=== PATIENT | female | born 1995 | race Caucasian/White ===

== ENCOUNTER 2017-08-17 21:32 | Emergency (ER) | payer OTHER, SELFPAY ==
[2017-08-17 22:18] VITALS: BP 142/89; PULSE 111; RESP 18; TEMP 36.8; O2SAT 98; BMI 45.1
[2017-08-18] MEDS: OXYCODONE/ACETAMINOPHEN 5/325 TABLET 2 TAB PO (00:10)
[2017-08-18 00:24] VITALS: BP 122/72; PULSE 96; RESP 14; O2SAT 97
--- NOTE | 2017-08-18 02:04 | ED_ITS ---
HPI - URI/Sore Throat General Chief Complaint: Upper Respiratory Symptoms Stated Complaint: SORE THROAT History of Present Illness HPI Narrative: HPI 22-year-old female presents for evaluation of 3+ days of progressively worsening sore throat, left tonsillar swelling, and discomfort. Patient was seen at urgent care approximately 2 days ago was placed on azithromycin without improvement. Denies headache, changes in vision or hearing, neck stiffness. ROS with no recent constitutional symptoms. Exam Gen: pleasant, nontoxic-appearing, resting mild discomfort. HEENT: posterior oropharynx with significant left [place] tonsillar swelling, uvular shift to the right, and mild left tonsillar hypertrophy. Neck supple full STORM him, otherwise normocephalic and atraumatic. The floor the mouth soft without elevation or swelling. Resp: Unlabored respirations with a normal work of breathing. Card: Extremities warm and well perfused. GI: Non-distended. : Deferred MSK: No visible deformities, strength and tone without visually appreciable deficit. Neuro: AO x 3, no facial asymmetry, vision and hearing WNL. Heme/Lymph: Deferred Skin: Normal color with no visible lesions (other than noted above). Psych: Mood and affect appropriate. MDM Previous chart, nursing note, and vitals reviewed. A: 22-year-old female presents for evaluation 3+ days of progressively worsening sore throat and left tonsillar swelling refractory to a Z-pack prescribed by urgent care. DDx & Evaluation: examination consistent with a left peritonsillar abscess. This was drained as documented below. Following drainage discussion was had with the patient regarding imaging to evaluate for the possibility of incomplete drainage versus treatment and return to care if patient is reaccumulation or other worsening and clinical trajectory. Patient decided to defer imaging pending a trial of antibiotics and steroids. Return to care precautions provided. Augmentin and dexamethasone given in the ED. Discharge RX for Augmentin and a repeat dose of Decadron given. Impression: left [employer] (please reference below for remainder of encounter information) Peritonsillar Abscess Drainage Verbal consent obtained. The risks and benefits including pain, bleeding, infection, and carotid artery injury were discussed with the patient and the patient understood these risks and agreed to the procedure. Patient premedicated with oxycodone. The patient's posterior oropharynx was topically anesthetized with several short sprays of benzocaine spray. 4 mL lidocaine with 1% epinephrine were injected into the mucosa overlying the area of maximal fluctuance. An 18-gauge needle with its sheath trimmed 1.5 cm short of the tip was inserted into the area of maximum fluctuance and 6 mL of purulent material was aspirated. Scant bleeding was appreciated which resolved shortly. The patient tolerated the procedure well without any apparent complications. Related Data Previous Rx's Medication Instructions Recorded azithromycin 250 mg tablet See Label Instructions PO .COMPLEX 08/15/17 #6 tab amoxicillin-pot clavulanate 1 tab PO BID #20 tab 08/18/17 [Augmentin] dexamethasone See Label Instructions .ROUTE 08/18/17 .COMPLEX #3 tab hydrocodone-acetaminophen [[place]] See Label Instructions .ROUTE 08/18/17 .COMPLEX PRN #8 tab Allergies Allergy/AdvReac Type Severity Reaction Status Date / Time No Known Drug Allergies Allergy Verified 08/17/17 22:18 [facility] Social History Smoking Status: Former smoker Exam Initial Vital Signs Initial Vital Signs: Vital Signs Temperature 98.2 F 08/17/17 22:18 Pulse Rate 111 H 08/17/17 22:18 Respiratory Rate 18 08/17/17 22:18 Blood Pressure 142/89 H 08/17/17 22:18 Pulse Oximetry 98 08/17/17 22:18 Course Orders Ordered: Discontinued Medications Amoxicillin/Clavulanate Potassium (Augmentin 875-125 Mg) 1 tab PO NOW ONE Stop: 08/18/17 01:54 Dexamethasone (Decadron) 12 mg PO NOW ONE Stop: 08/18/17 01:54 Oxycodone/Acetaminophen (Percocet 5/325) 2 tab PO NOW ONE Stop: 08/18/17 00:10 Last Admin: 08/18/17 00:10 Dose: 2 tab Vital Signs - 8 hr 08/17/17 22:18 08/18/17 00:24 Temperature 98.2 F Pulse Rate 111 H 96 H Respiratory Rate 18 14 Blood Pressure 142/89 H Blood Pressure [Right Arm] 122/72 H Pulse Oximetry 98 97 Discharge Plan Departure Patient Disposition: Home, Self-Care Clinical Impression: Abscess, peritonsillar Activity Restrictions/Additional Instructions: You were in seen in the [facility] Emergency Department for evaluation of a painful swallowing left tonsil. Your found have abscess. This was drained. If you develop worsening swelling, fevers, neck stiffness, headache, changes in vision or hearing please return immediately to the emergency department. This infection will most likely resolve your next 2 to 3 days with treatment with antibiotics and steroids. Please take the prescribed Augmentin twice daily for the next 10 days. Please take one further dose of dexamethasone approximately 24 to 30 hours after the dose your given in the emergency department. If your symptoms fail to resolve the next 2 to 3 days please return to the emergency department or see your primary care physician. Please read and follow all of the instructions below. Please follow up with your primary care physician as needed. If you have any new symptoms or if you are at all concerned about your health please return immediately to the emergency department. If you do not have a primary care physician, please contact [facility], [facility] at [phone], [facility] at [phone], or [facility] at [phone] to arrange follow up care. If you have health insurance, please also contact your insurer for a list of accepting providers under your policy, you may contact these providers for further health care. Your care today was limited to identifying and treating emergent medical problems only. Many people have subtle differences in their test results that require follow up with their outpatient physician(s) to correctly determine if this represents a normal variation or concerning abnormality with respect to your specific health. The care given to you today was limited to identifying and treating emergent medical problems - you need to request a copy of all of your medical records from today's visit and follow up with your outpatient physician(s) to review both today's visit and your overall health. Dexamethasone (Brand Names: Dexamethasone Intensol) Dexamethasone is a steroid with anti-inflammatory properties used to treat conditions such as asthma, COPD, allergic reactions, and arthritis. This medication is a corticosteroid hormone (glucocorticoid). It decreases your body' s natural defensive response and reduces symptoms such as swelling and allergic- type reactions. Dexamethasone ? How to Use: * Take this medication by mouth as directed. Take with food or milk to prevent stomach upset. * Before using this medication, check the liquid for particles. Do not use this medication if it contains any particles. * If prescribed a liquid form, use only the dropper provided with the product. Draw the prescribed amount of the medication into the dropper, and then squeeze into liquid (e.g., water, juice, soda) or semi-solid food (e.g., applesauce, pudding). Stir the liquid or food gently for a few seconds. Take the entire amount of the drug and liquid/food mixture by mouth right away. Do not save for later. * The dosage and length of treatment are based on your medical condition and response to therapy. Your doctor may attempt to reduce your dose slowly from time to time to minimize side effects. Dexamethasone ? Side Effects: * Stomach upset, headache, dizziness, menstrual changes, trouble sleeping, increased appetite, or weight gain may occur. If any of these effects persist or worsen, notify your doctor or pharmacist promptly. * Remember that your doctor has prescribed this medication because he or she has judged that the benefit to you is greater than the risk of side effects. Many people using this medication do not have serious side effects. * Tell your doctor right away if any of these unlikely but serious side effects occur: signs of infection (e.g., fever, persistent sore throat), bone/joint pain , increased thirst/urination, fast/slow/irregular heartbeat, eye pain/pressure, vision problems, heartburn, black stools, vomit that looks like coffee grounds, puffy face, swelling of the ankles/feet, stomach/abdominal pain, pain/redness/ swelling of arms/legs, tiredness, mental/mood changes (e.g., depression, mood swings, agitation), unusual hair/skin growth, muscle pain/cramps, weakness, easy bruising/bleeding, slow wound healing, thinning skin, seizures. * A very serious allergic reaction to this drug is rare. However, seek immediate medical attention if you notice any symptoms of a serious allergic reaction, including: rash, itching/swelling (especially of the face/tongue/ throat), severe dizziness, trouble breathing. This is not a complete list of possible side effects. If you notice other effects not listed above, contact your doctor or pharmacist. Dexamethasone ? Precautions: * Before taking dexamethasone, tell your doctor or pharmacist if you are allergic to it; or to other corticosteroids (e.g., prednisone); or if you have any other allergies. This product may contain inactive ingredients, which can cause allergic reactions or other problems. Talk to your pharmacist for more details. * This medication should not be used if you have certain medical conditions. Before using this medicine, consult your doctor or pharmacist if you have: active fungal infections. * Before using this medication, tell your doctor or pharmacist your medical history, especially of: other infections (e.g., tuberculosis, herpes), kidney disease, liver disease, mental/mood conditions (e.g., psychosis, anxiety, depression), low blood minerals (e.g., low potassium/calcium), thyroid disease, stomach/intestinal problems (e.g., ulcer, ulcerative colitis, diverticulitis, unexplained diarrhea), high blood pressure, heart problems (e.g., congestive heart failure, recent heart attack), diabetes, eye diseases (e.g., cataracts, glaucoma, herpes infection of the eye), brittle bones (osteoporosis), history of blood clots. * This medication may mask signs of infection or put you at greater risk of developing very serious infections. Report any injuries or signs of infection ( e.g., persistent sore throat/fever/cough, pain during urination, muscle aches) that occur during treatment. * Tell your doctor right away if you develop unusual/extreme tiredness or weight loss. If you will be using this medication for a long time, carry a warning card or medical ID bracelet that identifies your use of this medication. * Do not have immunizations, vaccinations, or skin tests unless specifically directed by your doctor. Live vaccines may cause serious complications (e.g., infection) if given while you are taking this medication. Avoid contact with people who have recently received oral polio vaccine or flu vaccine inhaled through the nose. * Avoid contact with people who have chickenpox or measles unless you have previously had these diseases (e.g., in childhood). If you are exposed to one of these infections and you have not previously had it, seek immediate medical attention. This product contains alcohol. Caution is advised if you have alcohol dependence or liver disease. Ask your doctor or pharmacist about using this product safely. If you have a history of ulcers or take large doses of aspirin or other arthritis medication, limit alcoholic beverages while taking this medication to decrease the risk of stomach/intestinal bleeding. Consult your doctor or pharmacist for more details. * If you have diabetes, this drug may make it harder to control your blood sugar levels. Monitor your blood sugar levels regularly and inform your doctor of the results. Your medicine, exercise plan, or diet may need to be adjusted. * This drug may make you dizzy. Do not drive, use machinery, or do any activity that requires alertness until you are sure you can perform such activities safely. Limit alcoholic beverages. This medication may slow down a child's growth if used for a long time. Consult the doctor or pharmacist for more details. See the doctor regularly so your child's height and growth can be checked. * During , this medication should be used only when clearly needed. Discuss the risks and benefits with your doctor. Infants born to mothers who have been using this medication for an extended time and/or at high doses may have low levels of corticosteroid hormone. Tell your doctor right away if you notice symptoms such as persistent nausea/vomiting, severe diarrhea, or weakness in your . * This drug may pass into breast milk and could have undesirable effects on a nursing infant. Consult your doctor before breast- feeding. Dexamethasone ? Drug Interactions: * Drug interactions may change how your medications work or increase your risk for serious side effects. This document does not contain all possible drug interactions. Keep a list of all the products you use (including prescription/ nonprescription drugs and herbal products) and share it with your doctor and pharmacist. Do not start, stop, or change the dosage of any medicines without your doctor's approval. * Some products that may interact with this drug include: aminoglutethimide, control pills, caspofungin, certain cancer drugs (dasatinib, lapatinib, sunitinib, aldesleukin), cholestyramine, cobicistat, digoxin, elvitegravir, drugs that can cause bleeding/bruising (including antiplatelet drugs such as clopidogrel, blood thinners such as dabigatran/warfarin, NSAIDs such as aspirin/celecoxib/ibuprofen), ephedrine, estrogen hormone replacement, HIV protease inhibitors (such as indinavir), isoniazid, mifepristone, rilpivirine, thalidomide. * Other medications can affect the removal of dexamethasone from your body, which may affect how dexamethasone works. Examples include azole antifungals ( such as ketoconazole), barbiturates (such as phenobarbital), rifamycins (such as rifampin), certain medications used to treat seizures (such as phenytoin, carbamazepine), among others. * If your doctor has directed you to take low-dose aspirin for heart attack or stroke prevention (usually at dosages of 81-325 milligrams a day), you should continue taking it unless your doctor instructs you otherwise. Ask your doctor or pharmacist for more details. * This medication may interfere with certain laboratory tests (including skin tests), possibly causing false test results. Make sure laboratory personnel and all your doctors know you use this drug. Amoxicillin/Clavulanic Acid (Brand Name: Augmentin) * Please take this medication as prescribed. * Please take the medication for the full duration of the precription. * If you feel you are experiencing a side effect, please call your physician or the emergency department. * This is a penicillin type medicine used to treat a wide variety of bacterial infections. Amoxicillin/Clavulanic Acid Side Effects: * Diarrhea, nausea, or vomiting may occur. If any of these effects persist or worsen, tell the doctor or pharmacist promptly. Taking this medication with food will help to reduce stomach upset. * Tell the doctor right away if any of these rare but serious side effects occur : dark urine, persistent nausea/vomiting, severe stomach/abdominal pain, yellowing eyes/skin, easy bruising/bleeding, new signs of infection (such as fever, persistent sore throat), unusual tiredness. * This medication may rarely cause a severe intestinal condition (Clostridium difficile-associated diarrhea) due to a type of resistant bacteria. This condition may occur during treatment or weeks to months after treatment has stopped. Do not use anti-diarrhea products or narcotic pain medications if you have any of the following symptoms because these products may make them worse. Tell the doctor right away if you develop: persistent diarrhea, abdominal or stomach pain/cramping, blood/mucus in your stool. * Use of this medication for prolonged or repeated periods may result in oral thrush or a new yeast infection. Contact the doctor if you notice white patches in your mouth, a change in vaginal discharge or other new symptoms. * A very serious allergic reaction to this drug is rare. However, get medical help right away if you notice any symptoms of a serious allergic reaction, including: rash, itching/swelling (especially of the face/tongue/throat), severe dizziness, trouble breathing. * Amoxicillin can commonly cause a mild rash that is usually not serious. However, you may not be able to tell it apart from a rare rash that could be a sign of a severe allergic reaction. Therefore, get medical help right away if you develop any rash. Amoxicillin/Clavulanic Acid Precautions: * Before taking this product, tell your doctor or pharmacist if you are allergic to amoxicillin or clavulanic acid; or to penicillin or cephalosporin antibiotics; or if you have any other allergies. This product may contain inactive ingredients, which can cause allergic reactions or other problems. Talk to your pharmacist for more details. * Before using this medication, tell the doctor or pharmacist your medical history, especially of: liver disease (including liver problems caused by previous use of amoxicillin/clavulanic acid), kidney disease, a certain type of viral infection (infectious mononucleosis). * This medication may contain aspartame. If you have phenylketonuria (PKU) or any other condition that requires you to limit/avoid aspartame (or phenylalanine ) in your diet, ask your doctor or pharmacist about using this medication safely. * Before having surgery, tell your doctor or dentist about all the products you use (including prescription drugs, nonprescription drugs, and herbal products). * This product may cause live bacterial vaccines (such as typhoid vaccine) not to work as well. Therefore, do not have any immunizations/vaccinations while using this medication without the consent of your doctor. * During , this medication should be used only when clearly needed. Discuss the risks and benefits with your doctor. * This medication passes into breast milk. Consult your doctor before breast- feeding. Amoxicillin/Clavulanic Acid Drug Interactions: * Drug interactions may change how your medications work or increase your risk for serious side effects. This document does not contain all possible drug interactions. Keep a list of all the products you use (including prescription/ nonprescription drugs and herbal products) and share it with your doctor and pharmacist. Do not start, stop, or change the dosage of any medicines without your doctor's approval. * Products that may interact with this drug include: methotrexate. * Although most antibiotics are unlikely to affect hormonal control such as pills, patch, or ring, a few antibiotics (such as rifampin, rifabutin) can decrease their effectiveness. This could result in . If you use hormonal control, ask your doctor or pharmacist for more details. * This medication may interfere with certain laboratory tests (including certain urine glucose tests), possibly causing false test results. Make sure laboratory personnel and all your doctors know you use this drug. Hydrocodone/Acetaminophen (Brand Names: [place], Vicodin) * Take as directed on the prescription for relief of pain. * This product contains acetaminophen (Tylenol) do not use it with other Acetaminophen containing medications. * This drug may cause mild nausea, if so you may take it with a small snack. * This drug will cause constipation, if you experience a decrease in bowel movements purchase Senna-S (sennasides and docusate) which is available over the counter at pharmacies and take as directed on the bottle. Call your physician if you have not had bowel movemen in two days. * This drug may cause fatigue - do not drive or engage in other hazardous activities when using this medication. * Do no drink alcohol when using this medication. * Store this drug safely, it is a high risk medication if misused. SIDE EFFECTS: Tell your doctor immediately if any of these unlikely but serious side effects occur: mental/mood changes, severe stomach/abdominal pain, difficulty urinating. Seek immediate medical attention if any of these rare but serious side effects occur: fainting, seizure, slow/shallow breathing, unusual drowsiness/difficulty waking up. Taking more than the recommended dose of acetaminophen may cause serious (possibly fatal) liver disease. Seek immediate medical attention if you have any symptoms of liver damage, including: dark urine, persistent nausea/vomiting, stomach/abdominal pain, yellowing eyes/skin. A very serious allergic reaction to this drug is rare. However, seek immediate medical attention if you notice any symptoms of a serious allergic reaction, including: rash, itching/swelling (especially of the face/tongue/throat), severe dizziness, trouble breathing. This is not a complete list of possible side effects. PRECAUTIONS: Before taking this medication, tell your doctor or pharmacist if you are allergic to it; or to other narcotics (such as morphine, codeine); or if you have any other allergies. This product may contain inactive ingredients, which can cause allergic reactions or other problems. Talk to your pharmacist for more details. Before using this medication, tell your doctor or pharmacist your medical history, especially of: brain disorders (such as head injury, tumor , seizures), breathing problems (such as asthma, sleep apnea, chronic obstructive pulmonary disease-COPD), kidney disease, liver disease, mental/mood disorders (such as confusion, depression), personal or family history of regular use/abuse of drugs/alcohol, stomach/intestinal problems (such as blockage, constipation, diarrhea due to infection, paralytic ileus), difficulty urinating (such as due to enlarged prostate). This drug may make you dizzy or drowsy. Avoid alcoholic beverages. Acetaminophen may cause liver damage. Daily use of alcohol, especially when combined with acetaminophen, may increase your risk for liver damage. Caution is advised if you have diabetes, alcohol dependence, liver disease, phenylketonuria (PKU), or any other condition that requires you to limit/avoid these substances in your diet. Ask your doctor or pharmacist about using this product safely. Older adults may be more sensitive to the effects of this drug, especially dizziness, drowsiness, urinary problems. During , this medication should be used only when clearly needed. Using it for long periods or in high doses near the expected delivery date is not recommended because of the potential for harm to the unborn baby. Discuss the risks and benefits with your doctor. Babies born to mothers who have used this medication for an extended time may have withdrawal symptoms such as irritability, abnormal/persistent crying, vomiting, or diarrhea. If you notice any of these symptoms in your , tell the doctor promptly. This medication passes into breast milk and may rarely have undesirable effects on a nursing infant. Tell the doctor immediately if your baby develops unusual sleepiness, difficulty feeding, or trouble breathing. Consult your doctor before breast-feeding. Prescriptions: New hydrocodone-acetaminophen [[place]] 5-325 mg tablet See Label Instructions .ROUTE .COMPLEX PRN (Reason: pain) Qty: 8 RF: 0 dexamethasone 4 mg tablet See Label Instructions .ROUTE .COMPLEX Qty: 3 RF: 0 amoxicillin-pot clavulanate [Augmentin] 875-125 mg tablet 1 tab PO BID Qty: 20 RF: 0 No Action azithromycin 250 mg tablet See Label Instructions PO .COMPLEX Qty: 6 RF: 0
[2017-08-18] MEDS: DEXAMETHASONE 4 MG TABLET 12 MG PO (02:33)
[2017-08-18] MEDS: AMOXICILLIN/CLAV 875/125 MG 1 TAB PO (02:34)
[2017-08-18 02:36] VITALS: BP 138/96; PULSE 101; TEMP 37.2; O2SAT 96
== END 2017-08-18 02:37 | disposition home or self-care (01) ==
PROVIDERS: Emergency Provider Emergency Medicine
DX: J36 Peritonsillar abscess (principal)
CPT/HCPCS: 10060; 87880; 99282; 99283

== ENCOUNTER → 2017-09-02 09:38 | Outpatient (CLI) | payer OTHER, SELFPAY ==
[2017-09-02 10:32] LABS: Add Manual Diff / Slide Review NO; Basophils Percent Auto 0.7 % (0-2); Eosinophils Percent Auto 2.2 % (2-4); Hematocrit 39.6 % (36-46); Lymphocytes Percent Auto 24.8 % (25-40); Mean Corpuscular HGB Conc 32.9 % (30-36); Mean Corpuscular Hemoglobin 25.1 PG (26-34); Mean Corpuscular Volume 76.2 fL (80-100); Neutrophils Absolute Auto 8600 /uL (3000-5900); Neutrophils Percent Auto 66.3 % (50-75); Platelet Count 292 X10^3/uL (150-400); Red Cell Distribution Width 15.1 % (11.6-14.8); White Blood Cell Count 12.9 X10^3/uL (4.5-11.0)
[2017-09-02 10:53] LABS: Hemoglobin A1C% w Est Avg Glu 7.8 % (4.0-6.0)
[2017-09-02 11:03] LABS: Alanine Aminotransferase 74 IU/L (9-52); Albumin 4.3 g/dL (3.5-5.0); Albumin Globulin Ratio 1.4 (1.0-2.8); Alkaline Phosphatase 69 U/L (38-126); Aspartate Aminotransferase 41 IU/L (14-36); Bilirubin Total 0.4 mg/dL (0.2-1.3); Blood Urea Nitrogen 10 mg/dL (7-17); Calcium 10.1 mg/dL (8.4-10.2); Carbon Dioxide 28 mmol/L (22-32); Chloride 100 mmol/L (98-107); Estimated Glomerular Filt Rate > 60.0 mL/min (>60); Glucose 223 mg/dL (70-100); HEMOLYSIS < 15 (0-50); Potassium 4.5 mmol/L (3.4-5.1); Sodium 139 mmol/L (137-145); Total Protein 7.3 g/dL (6.3-8.2)
== END ==
PROVIDERS: PCP Specialist; Visit Provider Specialist
DX: J36 Peritonsillar abscess (principal); L83 Acanthosis nigricans; E66.9 Obesity, unspecified
CPT/HCPCS: 36415; 80053; 83036; 85025

== ENCOUNTER → 2017-12-19 11:12 | Outpatient (CLI) | payer OTHER, SELFPAY | PROVIDERS: PCP Specialist | DX: Z23 Encounter for immunization (principal) | CPT/HCPCS: 90471; 90686 ==

== ENCOUNTER → 2018-11-30 15:26 | Outpatient (CLI) | payer OTHER, SELFPAY | PROVIDERS: PCP Specialist | DX: Z23 Encounter for immunization (principal) | CPT/HCPCS: 90471; 90686 ==

== ENCOUNTER → 2019-06-28 07:44 | Outpatient (CLI) | payer OTHER, SELFPAY ==
[2019-06-28 09:18] LABS: Add Manual Diff / Slide Review NO; Basophils Absolute Auto 100 /uL (0-100); Basophils Percent Auto 0.7 % (0-2); Eosinophils Absolute Auto 300 /uL (0-450); Eosinophils Percent Auto 2.4 % (2-4); Hematocrit 42.6 % (36-46); Hemoglobin 13.9 g/dL (12.0-16.0); Lymphocytes Absolute Auto 3600 /uL (1100-4500); Lymphocytes Percent Auto 30.6 % (25-40); Mean Corpuscular HGB Conc 32.7 % (30-36); Mean Corpuscular Hemoglobin 25.2 PG (26-34); Mean Corpuscular Volume 77.3 fL (80-100); Monocytes Absolute Auto 700 /uL (0-900); Monocytes Percent Auto 5.8 % (3-14); Neutrophils Absolute Auto 7200 /uL (1500-7000); Neutrophils Percent Auto 60.5 % (50-75); Platelet Count 320 X10^3/uL (150-400); Red Blood Cell Count 5.52 X10^6/uL (4.0-5.2); Red Cell Distribution Width 14.5 % (11.6-14.8); White Blood Cell Count 11.9 X10^3/uL (4.5-11.0)
[2019-06-28 09:44] LABS: Alanine Aminotransferase 96 IU/L (<35); Albumin 4.6 g/dL (3.5-5.0); Albumin Globulin Ratio 1.2 (1.0-2.8); Alkaline Phosphatase 90 U/L (38-126); Aspartate Aminotransferase 53 IU/L (14-36); BUN Creatinine Ratio 23.4 (6-22); Bilirubin Total 0.4 mg/dL (0.2-1.3); Blood Urea Nitrogen 11 mg/dL (7-17); Calcium 9.4 mg/dL (8.4-10.2); Carbon Dioxide 25 mmol/L (22-32); Chloride 100 mmol/L (98-107); Cholesterol 219 mg/dL (140-199); Estimated Glomerular Filt Rate > 60.0 mL/min (>60); Globulin 3.8 g/dL (1.7-4.1); Glucose 291 mg/dL (70-100); HDL Cholesterol 45 mg/dL (40-60); HEMOLYSIS < 15 (0-50); LDL Cholesterol Calculated 144 mg/dL (<100); Potassium 4.2 mmol/L (3.4-5.1); Sodium 137 mmol/L (137-145); Total Protein 8.4 g/dL (6.3-8.2); Triglycerides 152 mg/dL (35-150)
[2019-06-28 09:53] LABS: Free T3, Triiodothyronine Free 4.32 pg/mL (2.77-5.27); Free T4, Direct Thyroxine 1.16 ng/dL (0.78-2.19)
[2019-06-28 10:07] LABS: Thyroid Stimulating Hormone 2.49 uIU/mL (0.47-4.68)
[2019-06-28 12:12] LABS: Creatinine Urine Random 167.6 mg/dL
[2019-06-28 12:16] LABS: Microalbumi Creatinin Ratio Ur 16.7 ug/mg CR (<30); Microalbumin Urine Random 2.8 mg/dL (0-1.6)
== END ==
PROVIDERS: PCP Specialist; Referring Provider Nurse Practitioner; Visit Provider Nurse Practitioner
DX: Z00.00 Encounter for general adult medical examination without abnormal findings (principal); I10 Essential (primary) hypertension; R73.09 Other abnormal glucose; R73.9 Hyperglycemia, unspecified
CPT/HCPCS: 36415; 80053; 80061; 82043; 82570; 84439; 84443; 84481; 85025

== ENCOUNTER → 2019-07-02 08:42 | Outpatient (CLI) | payer OTHER, SELFPAY ==
--- NOTE | 2019-07-02 08:44 | DI.US.S_ITS ---
ULTRASOUND OF LEFT BREAST: 07/02/2019 CLINICAL: Left breast pain. No prior exams were available for comparison. Ultrasound of the left breast was performed on the area of interest. Douglas scale images of the real-time examination were reviewed. IMPRESSION: NEGATIVE There is no sonographic evidence of malignancy. There is no sonographic abnormality seen in the left breast to correspond with the pain, however, clinical followup is recommended. This exam was interpreted at Station ID: [id number]. Electronically Signed By: Darcy Dunn M.D. lk/:07/02/2019 10:36:45 letter sent: Clinical Evaluation Ultrasound BI-RADS: 1 Negative
== END ==
PROVIDERS: PCP Nurse Practitioner; Referring Provider Nurse Practitioner; Visit Provider Nurse Practitioner
DX: N64.4 Mastodynia (principal)
CPT/HCPCS: 76642

== ENCOUNTER → 2019-07-11 11:05 | Outpatient (CLI) | payer OTHER, SELFPAY ==
[2019-07-11 13:28] LABS: Glucose 232 mg/dL (70-100)
[2019-07-11 13:35] LABS: Hemoglobin A1C% w Est Avg Glu 11.6 % (4.0-6.0)
== END ==
PROVIDERS: PCP Nurse Practitioner; Referring Provider Nurse Practitioner; Visit Provider Nurse Practitioner
DX: R73.01 Impaired fasting glucose (principal)
CPT/HCPCS: 36415; 82947; 83036

== ENCOUNTER 2019-08-27 16:00 | Outpatient (RCR) | payer OTHER, SELFPAY ==
--- NOTE | 2019-07-04 12:46 | PT.OIE ---
Current Diagnoses Pain in left ankle and joints of left foot (07/04/19) Pain in left foot (07/04/19) Difficulty in walking, not elsewhere classified (07/04/19) Weakness (07/04/19) Past Medical History (Last Updated 07/02/19 @ 10:00 by ANDREEA Childers) Morbid obesity with body mass index of 45.0-49.9 in adult (Acute) Visit Care Team Role Provider Type ANDREEA Childers Attending Provider Advanced Work And Family Life Consultant Primary Care Provider Referring Provider Specialty: [facility] Address: [address] [place] [address] Email: [email or web address] Physical Therapy Initial Evaluation PT-OP-A Visit Information Start: 07/04/19 10:26 Freq: Status: Active Protocol: Document 07/04/19 10:26 [facility] (Rec: 07/04/19 12:26 [facility] [id number]) Out-Patient Physical Therapy Visit Information Visit Information Visit Type Initial Evaluation Visit Start Time 10:30 Visit Stop Time 11:15 Total Visit Minutes 45 Visit Number 1 Number of SAP BW ARCHITECT Visits 0 PT-OP-B Current Condition Start: 07/04/19 10:26 Freq: Status: Active Protocol: Document 07/04/19 10:26 [facility] (Rec: 07/04/19 12:26 [facility] [id number]) Current Condition History of Current Condition Onset Date February Current Complaints L lat ankle, heels lower leg and knee History of Current Condition Pt had insidious onset of L ankle pain laterally that has spread to L heel and lat lower leg up to knee and Pt has noticed L knee has been painful. Pt had swelling when it strated hurting and started wearing a compression brace. Pt reports it takes a couple hours of standing/walking/ being on her feet before she starts to notice. Knee starts to also hurt with extended walking on anterior and lat aspect. Pt typically goes for a walk daily about 30 min to 1 hour with occasional hiking. Notes ankle sometimes feels unstable with hiking. Prior Treatments and Tests none Treatment Goals Patient/Caregiver Goals Want to learn how to alleviate the pain, figure out whats wrong Personal Factors Other Personal Factors That May Effect L knee sx with occasional pain Therapy/Recovery , pt reports constant underylying LBP that gets worse with walking, L hip pain occasionally with walking PT-OP-C Subjective Start: 07/04/19 10:26 Freq: Status: Active Protocol: Document 07/04/19 10:26 [facility] (Rec: 07/04/19 12:26 [facility] [id number]) Patient Questionnaires Foot & Ankle Ability Measure- ADL and Sports FAAM-ADL Score 71 FAAM-ADL Impairment 1 to 19% Impaired (Score 67-83 ) FAAM-Sport Score 23 FAAM-Sport Impairment 20 to 39% Impaired (Score 19- 24) Lower Extremity Functional Scale LEFS Score 66 LEFS Impairment 1 to 19% Impaired (Score 63-79 ) OP-PT Pain Assessment Location L ankle Pain Location Details Lat ankle, lower leg, heel Intensity 5 Scale Used Numeric (1 - 10) Description Aching,Sharp,With Movement Description- Other sharp when first step Frequency Daily Pain Duration a few hours Pain Aggravating Factors Standing,Walking Other Pain Aggravating Factors when first get up Pain Alleviating Factors Elevation PT-OP-D Balance Start: 07/04/19 10:26 Freq: Status: Active Protocol: Document 07/04/19 10:26 [facility] (Rec: 07/04/19 12:26 [facility] [id number]) Balance Tests Single Limb Standing Single Limb- Right >30 sec, 15 sec EC Single Limb- Left >30 sec EO, 14 sec EC Tandem Tandem Standing >30 sec B PT-OP-F Manual Assessment Start: 07/04/19 10:26 Freq: Status: Active Protocol: Document 07/04/19 10:26 [facility] (Rec: 07/04/19 12:26 [facility] [id number]) Manual Assessments Soft Tissue Assessment Soft Tissue Mobility Assessment tightness in L calf, peronials , pain along ATFL, PTFL Joint Mobility Assessment Joint Mobility Assessment patellar mobility WNL; L femur and tibia IR, R femur IR, tibia ER; pt has significant compenstated supinated foot postition PT-OP-G Mobility & Gait Start: 07/04/19 10:26 Freq: Status: Active Protocol: Document 07/04/19 10:26 [facility] (Rec: 07/04/19 12:46 [facility] [id number]) OP Gait Assessment Comments Gait Comments Pt amb with ER of L pelvis with push off. Dec push off L> R PT-OP-J Posture/Palpation/Skin Start: 07/04/19 10:26 Freq: Status: Active Protocol: Document 07/04/19 10:26 [facility] (Rec: 07/04/19 12:26 [facility] [id number]) Posture Evaluation [facility] Postural Classification System Lumbar Protective Mechanism Left AP 1 Lumbar Protective Mechanism Right AP 2 Lumbar Protective Mechanism Left PA 3 Lumbar Protective Mechanism Right PA 3 PT-OP-K Range of Motion Start: 07/04/19 10:26 Freq: Status: Active Protocol: Document 07/04/19 10:26 [facility] (Rec: 07/04/19 12:26 [facility] [id number]) Ankle and Foot Goniometric Range of Motion Ankle and Foot Right Active Dorsiflexion with Knee Flexed 12 Dorsiflexion with Knee Extended 0 Plantarflexion 55 Inversion 46 Eversion 17 Left Active Dorsiflexion with Knee Flexed 10 Dorsiflexion with Knee Extended 0 Plantarflexion 50 Inversion 41 Eversion 18 Ankle and Foot ROM Limitations Comments pain with inversion PT-OP-L Special Tests Start: 07/04/19 10:26 Freq: Status: Active Protocol: Document 07/04/19 10:26 [facility] (Rec: 07/04/19 12:26 [facility] [id number]) Special Tests Foot/Ankle Special Tests Talor Tilt Test Results neg Anterior Draw Test Results neg PT-OP-M Strength Start: 07/04/19 10:26 Freq: Status: Active Protocol: Document 07/04/19 10:26 [facility] (Rec: 07/04/19 12:26 [facility] [id number]) Hip Strength Hip Manual Muscle Testing Right Flexion (L2) 4+ Good+ Extension (S1) 4 Good Abduction 4 Good External Rotation 4- Good- Internal Rotation 4- Good- Left Flexion (L2) 4 Good Extension (S1) 3+ Fair+ Abduction 4- Good- External Rotation 3+ Fair+ Internal Rotation 3+ Fair+ Knee Strength Knee Manual Muscle Testing Right Flexion (S2) 5 Normal Extension (L3) 5 Normal Left Flexion (S2) 4 Good Extension (L3) 4 Good Comments pain with flex Ankle/Foot Strength Ankle and Foot Manual Muscle Testing Right Dorsiflexion (L4) 5 Normal Inversion 4+ Good+ Eversion (S1) 5 Normal Left Dorsiflexion (L4) 4 Good Plantarflexion (S1) 4+ Good+ Inversion 4 Good Eversion (S1) 4 Good PT-OP-Q Treatments Start: 07/04/19 10:26 Freq: Status: Active Protocol: Document 07/04/19 10: [facility] (Rec: 07/04/19 12:26 [facility] [id number]) Therapeutic Exercises Sitting Exercises 4 way ankle Sitting Exercise Name DF, PF, Inversion, eversion Side left Equipment Used L2 Reps/Minutes 15 Standing Exercises stretch Standing Exercise Name gastroc stretch Side bilateral Reps/Minutes 30 sec PT-OP-T Assessment and Plan Start: 07/04/19 10:26 Freq: Status: Active Protocol: Document 07/04/19 10: [facility] (Rec: 07/04/19 12:26 [facility] [id number]) Physical Therapy Assessment Rehab Potential Rehabilitation Potential Good Evaluation Complexity Number of Personal Factors/Comorbidities 1-2 Number of Body Systems Impaired 4 or More Clinical Presentation at Evaluation Stable Impairments Impairments Activity Tolerance,Balance, Functional Activities, Functional Mobility,Gait,Pain, ROM Goals flexibility Senior Living Goal (LTG) Pt will have full ROM B without inc pain to allow for improved gait mechanics and stability on uneven surfaces. LTG Duration 09/03/19 strenth Short Term Goal (STG) Pt will be indep with HEP STG Duration 08/04/19 Timber Bucker Goal (LTG) Pt will have 5/5 BLE strength and 4/5 LPM to show improved stability and dec pain with upright activities. LTG Duration 09/03/19 walking Short Term Goal (STG) Pt will be able to hike without ankle feeling unstable STG Duration 08/04/19 Timber Bucker Goal (LTG) Pt will be able to amb with good mechanics without pain with extended walking. LTG Duration 09/03/19 Assessment Summary Assessment Pt presents with insidious onset of L ankle pain about 5 months ago that his lingered and not improved. She reprorts lat heel, lat ankle, and lat lower leg pain with occasioanl progression of pain into L lat and ant knee in the past month. She is limited with the amount of time she spends standing and walking d/t pain and after a few hours has pain that can last a few hours even if she offloads her ankle . She has inc overall IR of femur & tibia on L and increased pronation during gait and in standing, dec core responses when pressure put in from AP into LLE, weakness of LLE, impaired gait mechanics and dec overall balance on LLE. Pt had inc pertubations on LLE>RLE in SLS & tandem stance. She would benefit from skilled PT to work on improving all these impairments in order to improve her ability to stand and ambulate without inc pain. Physical Therapy Plan Next Visit Focus/Plan Next Note Type Treatment Note Next Visit Plan review HEP as needed, balance board, STM to calf & peroneal & teach self mobs, mobs to rearfoot & tib/fib
--- NOTE | 2019-07-04 12:46 | PT.OPPOC ---
Physical, Occupational & Speech Therapy At [facility] Current Diagnoses Pain in left ankle and joints of left foot (07/04/19) Pain in left foot (07/04/19) Difficulty in walking, not elsewhere classified (07/04/19) Weakness (07/04/19) Visit Care Team Role Provider Type ANDREEA Childers Attending Provider Advanced Police Patrol Officer Primary Care Provider Referring Provider Specialty: Family Practice Address: [address] [place] [address], [facility] Email: [email or web address] Plan Of Care PT-OP-T Assessment and Plan Start: 07/04/19 10:26 Freq: Status: Active Protocol: Document 07/04/19 10:26 [facility] (Rec: 07/04/19 12:26 [facility] [id number]) Physical Therapy Assessment Rehab Potential Rehabilitation Potential Good Evaluation Complexity Number of Personal Factors/Comorbidities 1-2 Number of Body Systems Impaired 4 or More Clinical Presentation at Evaluation Stable Impairments Impairments Activity Tolerance,Balance, Functional Activities, Functional Mobility,Gait,Pain, ROM Goals flexibility Stock Puller Goal (LTG) Pt will have full ROM B without inc pain to allow for improved gait mechanics and stability on uneven surfaces. LTG Duration 09/03/19 strenth Short Term Goal (STG) Pt will be indep with HEP STG Duration 08/04/19 Long-Term Goal (LTG) Pt will have 5/5 BLE strength and 4/5 LPM to show improved stability and dec pain with upright activities. LTG Duration 09/03/19 walking Short Term Goal (STG) Pt will be able to hike without ankle feeling unstable STG Duration 08/04/19 Long-Term Goal (LTG) Pt will be able to amb with good mechanics without pain with extended walking. LTG Duration 09/03/19 Assessment Summary Assessment Pt presents with insidious onset of L ankle pain about 5 months ago that his lingered and not improved. She reprorts lat heel, lat ankle, and lat lower leg pain with occasioanl progression of pain into L lat and ant knee in the past month. She is limited with the amount of time she spends standing and walking d/t pain and after a few hours has pain that can last a few hours even if she offloads her ankle . She has inc overall IR of femur & tibia on L and increased pronation during gait and in standing, dec core responses when pressure put in from AP into LLE, weakness of LLE, impaired gait mechanics and dec overall balance on LLE. Pt had inc pertubations on LLE>RLE in SLS & tandem stance. She would benefit from skilled PT to work on improving all these impairments in order to improve her ability to stand and ambulate without inc pain. Physical Therapy Plan Next Visit Focus/Plan Next Note Type Treatment Note Next Visit Plan review HEP as needed, balance board, STM to calf & peroneal & teach self mobs, mobs to rearfoot & tib/fib Electronically Signed by: Janna Gibbons, PT 07/04/19 [id number] Please Sign and Return: I have reviewed this Plan of Care and certify that the skilled therapy services above are required to meet the patient?s needs. Physician Signature Date Printed Name and Credentials Clinical Instructor Signature Printed Name and Credentials
--- NOTE | 2019-07-04 18:04 | PT.OPPOC ---
Physical, Occupational & Speech Therapy At [facility] Current Diagnoses Pain in left ankle and joints of left foot (07/11/19) Pain in left foot (07/11/19) Difficulty in walking, not elsewhere classified (07/11/19) Weakness (07/11/19) Visit Care Team Role Provider Type ANDREEA Childers Attending Provider Advanced Manager Ed Primary Care Provider Referring Provider Specialty: Family Practice Address: [address] [place] [address], [facility] Email: [email or web address] Plan Of Care PT-OP-T Assessment and Plan Start: 07/04/19 10:26 Freq: Status: Active Protocol: Document 07/04/19 10:26 [facility] (Rec: 07/04/19 12:26 [facility] [id number]) Physical Therapy Assessment Rehab Potential Rehabilitation Potential Good Evaluation Complexity Number of Personal Factors/Comorbidities 1-2 Number of Body Systems Impaired 4 or More Clinical Presentation at Evaluation Stable Impairments Impairments Activity Tolerance,Balance, Functional Activities, Functional Mobility,Gait,Pain, ROM Goals flexibility Ship Boss Goal (LTG) Pt will have full ROM B without inc pain to allow for improved gait mechanics and stability on uneven surfaces. LTG Duration 09/03/19 strenth Short Term Goal (STG) Pt will be indep with HEP STG Duration 08/04/19 [facility] Goal (LTG) Pt will have 5/5 BLE strength and 4/5 LPM to show improved stability and dec pain with upright activities. LTG Duration 09/03/19 walking Short Term Goal (STG) Pt will be able to hike without ankle feeling unstable STG Duration 08/04/19 Ship Boss Goal (LTG) Pt will be able to amb with good mechanics without pain with extended walking. LTG Duration 09/03/19 Assessment Summary Assessment Pt presents with insidious onset of L ankle pain about 5 months ago that his lingered and not improved. She reprorts lat heel, lat ankle, and lat lower leg pain with occasioanl progression of pain into L lat and ant knee in the past month. She is limited with the amount of time she spends standing and walking d/t pain and after a few hours has pain that can last a few hours even if she offloads her ankle . She has inc overall IR of femur & tibia on L and increased pronation during gait and in standing, dec core responses when pressure put in from AP into LLE, weakness of LLE, impaired gait mechanics and dec overall balance on LLE. Pt had inc pertubations on LLE>RLE in SLS & tandem stance. She would benefit from skilled PT to work on improving all these impairments in order to improve her ability to stand and ambulate without inc pain. Physical Therapy Plan Frequency and Duration Frequency of Treatment 1-2x/week Duration of Treatment 2 months Plan of Care Start Date 07/11/19 Plan of Care End Date 09/10/19 Therapeutic Interventions Therapeutic Interventions Aquatic Therapy,Balance Training,Gait Training,Home Exercise Program,Joint Mobilizations,Manual Therapy, Neuromuscular Re-education, Patient/Caregiver Education, Self-Care/Home Management,Soft Tissue Mobilization,Taping, Therapeutic Activities, Therapeutic Exercises Modalities Cold Pack/Ice Massage,Electric Stimulation,Hot Packs, Infrared Therapy,Iontophoresis ,Ultrasound Next Visit Focus/Plan Next Note Type Treatment Note Next Visit Plan review HEP as needed, balance board, STM to calf & peroneal & teach self mobs, mobs to rearfoot & tib/fib Plan of Care Dates Plan of Care Start Date 07/11/19 Plan of Care End Date 09/10/19 Electronically Signed by: Janna Gibbons, PT 07/11/19 1970 Please Sign and Return: I have reviewed this Plan of Care and certify that the skilled therapy services above are required to meet the patient?s needs. Physician Signature Date Printed Name and Credentials Clinical Instructor Signature Printed Name and Credentials
--- NOTE | 2019-07-11 18:25 | PT.OTN ---
Current Diagnoses Pain in left ankle and joints of left foot (07/11/19) Pain in left foot (07/11/19) Difficulty in walking, not elsewhere classified (07/11/19) Weakness (07/11/19) Physical Therapy Treatment Note PT-OP-A Visit Information Start: 07/04/19 10:26 Freq: Status: Active Protocol: Document 07/11/19 18:17 [facility] (Rec: 07/11/19 18:25 [facility] [id number]) Out-Patient Physical Therapy Visit Information Visit Information Visit Type Treatment Note Visit Start Time 16:02 Visit Stop Time 16:50 Total Visit Minutes 48 Visit Number 2 Number of MAPLE SYRUP MAKER Visits 0 PT-OP-B Current Condition Start: 07/04/19 10:26 Freq: Status: Active Protocol: Document 07/04/19 10:26 [facility] (Rec: 07/04/19 12:26 [facility] [id number]) Current Condition History of Current Condition Onset Date February Current Complaints L lat ankle, heels lower leg and knee History of Current Condition Pt had insidious onset of L ankle pain laterally that has spread to L heel and lat lower leg up to knee and Pt has noticed L knee has been painful. Pt had swelling when it strated hurting and started wearing a compression brace. Pt reports it takes a couple hours of standing/walking/ being on her feet before she starts to notice. Knee starts to also hurt with extended walking on anterior and lat aspect. Pt typically goes for a walk daily about 30 min to 1 hour with occasional hiking. Notes ankle sometimes feels unstable with hiking. Prior Treatments and Tests none Treatment Goals Patient/Caregiver Goals Want to learn how to alleviate the pain, figure out whats wrong Personal Factors Other Personal Factors That May Effect L knee sx with occasional pain Therapy/Recovery , pt reports constant underylying LBP that gets worse with walking, L hip pain occasionally with walking PT-OP-C Subjective Start: 07/04/19 10:26 Freq: Status: Active Protocol: Document 07/11/19 18:17 [facility] (Rec: 07/11/19 18:25 [facility] [id number]) OP-PT Subjective Patient Comments Patient Comments Pt reprots compliance with HEP and ankle not bothering her a ton today PT-OP-D Balance Start: 07/04/19 10:26 Freq: Status: Active Protocol: Document 07/04/19 10:26 [facility] (Rec: 07/04/19 12:26 [facility] [id number]) Balance Tests Single Limb Standing Single Limb- Right >30 sec, 15 sec EC Single Limb- Left >30 sec EO, 14 sec EC Tandem Tandem Standing >30 sec B PT-OP-F Manual Assessment Start: 07/04/19 10:26 Freq: Status: Active Protocol: Document 07/04/19 10:26 [facility] (Rec: 07/04/19 12:26 [facility] [id number]) Manual Assessments Soft Tissue Assessment Soft Tissue Mobility Assessment tightness in L calf, peronials , pain along ATFL, PTFL Joint Mobility Assessment Joint Mobility Assessment patellar mobility WNL; L femur and tibia IR, R femur IR, tibia ER; pt has significant compenstated supinated foot postition PT-OP-G Mobility & Gait Start: 07/04/19 10:26 Freq: Status: Active Protocol: Document 07/04/19 10:26 [facility] (Rec: 07/04/19 12:46 [facility] [id number]) OP Gait Assessment Comments Gait Comments Pt amb with ER of L pelvis with push off. Dec push off L> R PT-OP-J Posture/Palpation/Skin Start: 07/04/19 10:26 Freq: Status: Active Protocol: Document 07/04/19 10:26 [facility] (Rec: 07/04/19 12:26 [facility] [id number]) Posture Evaluation [facility] Postural Classification System Lumbar Protective Mechanism Left AP 1 Lumbar Protective Mechanism Right AP 2 Lumbar Protective Mechanism Left PA 3 Lumbar Protective Mechanism Right PA 3 PT-OP-K Range of Motion Start: 07/04/19 10:26 Freq: Status: Active Protocol: Document 07/04/19 10:26 [facility] (Rec: 07/04/19 12:26 [facility] [id number]) Ankle and Foot Goniometric Range of Motion Ankle and Foot Right Active Dorsiflexion with Knee Flexed 12 Dorsiflexion with Knee Extended 0 Plantarflexion 55 Inversion 46 Eversion 17 Left Active Dorsiflexion with Knee Flexed 10 Dorsiflexion with Knee Extended 0 Plantarflexion 50 Inversion 41 Eversion 18 Ankle and Foot ROM Limitations Comments pain with inversion PT-OP-L Special Tests Start: 07/04/19 10:26 Freq: Status: Active Protocol: Document 07/04/19 10:26 [facility] (Rec: 07/04/19 12:26 [facility] [id number]) Special Tests Foot/Ankle Special Tests Talor Tilt Test Results neg Anterior Draw Test Results neg PT-OP-M Strength Start: 07/04/19 10:26 Freq: Status: Active Protocol: Document 07/04/19 10:26 [facility] (Rec: 07/04/19 12:26 [facility] [id number]) Hip Strength Hip Manual Muscle Testing Right Flexion (L2) 4+ Good+ Extension (S1) 4 Good Abduction 4 Good External Rotation 4- Good- Internal Rotation 4- Good- Left Flexion (L2) 4 Good Extension (S1) 3+ Fair+ Abduction 4- Good- External Rotation 3+ Fair+ Internal Rotation 3+ Fair+ Knee Strength Knee Manual Muscle Testing Right Flexion (S2) 5 Normal Extension (L3) 5 Normal Left Flexion (S2) 4 Good Extension (L3) 4 Good Comments pain with flex Ankle/Foot Strength Ankle and Foot Manual Muscle Testing Right Dorsiflexion (L4) 5 Normal Inversion 4+ Good+ Eversion (S1) 5 Normal Left Dorsiflexion (L4) 4 Good Plantarflexion (S1) 4+ Good+ Inversion 4 Good Eversion (S1) 4 Good PT-OP-Q Treatments Start: 07/04/19 10:26 Freq: Status: Active Protocol: Document 07/11/19 18:17 [facility] (Rec: 07/11/19 18:25 [facility] [id number]) Therapeutic Exercises Sitting Exercises intrinsics Sitting Exercise Name toe ext, abd, then back to neutral with abd Reps/Minutes 6 PF/DF Sitting Exercise Name PF w/toe ext & DF w/toe flex Reps/Minutes 10 towel scrunches Reps/Minutes 1x Standing Exercises lunges Side bilateral Reps/Minutes 5 Manual Therapy Treatment Soft Tissue Mobilization plantar fascia Body Location post Mobilization Type Rolling Intensity/Depth Moderate Joint Mobilizations proximal tib fib Joint fib Direction PA FM distal tib/fib Joint AP fibula FM Comments supine & standing talus Direction distraction calcaneus Joint distraction, lat glide & tilt FM PT-OP-T Assessment and Plan Start: 07/04/19 10:26 Freq: Status: Active Protocol: Document 07/11/19 18:17 [facility] (Rec: 07/11/19 18:25 [facility] [id number]) Physical Therapy Assessment Goals flexibility Usp Goal (LTG) Pt will have full ROM B without inc pain to allow for improved gait mechanics and stability on uneven surfaces. LTG Duration 09/03/19 strenth Short Term Goal (STG) Pt will be indep with HEP STG Duration 08/04/19 Usp Goal (LTG) Pt will have 5/5 BLE strength and 4/5 LPM to show improved stability and dec pain with upright activities. LTG Duration 09/03/19 walking Short Term Goal (STG) Pt will be able to hike without ankle feeling unstable STG Duration 08/04/19 Web Site Designer Goal (LTG) Pt will be able to amb with good mechanics without pain with extended walking. LTG Duration 09/03/19 Assessment Summary Assessment Pt improved with gliding of tib fib and talus with mobilizations which improved ease of DF movement. Difficulty with form for lunges and did well with understanding of instrinsic foot mm exercises. Physical Therapy Plan Frequency and Duration Frequency of Treatment 1-2x/week Duration of Treatment 2 months Plan of Care Start Date 07/11/19 Plan of Care End Date 09/10/19 Next Visit Focus/Plan Next Note Type Treatment Note Next Visit Plan work on STM & rear foot mobs, review lunges
--- NOTE | 2019-07-23 18:28 | PT.OTN ---
Current Diagnoses Pain in left ankle and joints of left foot (07/23/19) Pain in left foot (07/23/19) Difficulty in walking, not elsewhere classified (07/23/19) Weakness (07/23/19) Physical Therapy Treatment Note PT-OP-A Visit Information Start: 07/04/19 10:26 Freq: Status: Active Protocol: Document 07/23/19 18:20 [facility] (Rec: 07/23/19 18:28 [facility] [id number]) Out-Patient Physical Therapy Visit Information Visit Information Visit Type Treatment Note Visit Start Time 16:53 Visit Stop Time 17:37 Total Visit Minutes 45 Visit Number 3 Number of FIBERGLASS LAMINATOR Visits 0 PT-OP-B Current Condition Start: 07/04/19 10:26 Freq: Status: Active Protocol: Document 07/04/19 10:26 [facility] (Rec: 07/04/19 12:26 [facility] [id number]) Current Condition History of Current Condition Onset Date February Current Complaints L lat ankle, heels lower leg and knee History of Current Condition Pt had insidious onset of L ankle pain laterally that has spread to L heel and lat lower leg up to knee and Pt has noticed L knee has been painful. Pt had swelling when it strated hurting and started wearing a compression brace. Pt reports it takes a couple hours of standing/walking/ being on her feet before she starts to notice. Knee starts to also hurt with extended walking on anterior and lat aspect. Pt typically goes for a walk daily about 30 min to 1 hour with occasional hiking. Notes ankle sometimes feels unstable with hiking. Prior Treatments and Tests none Treatment Goals Patient/Caregiver Goals Want to learn how to alleviate the pain, figure out whats wrong Personal Factors Other Personal Factors That May Effect L knee sx with occasional pain Therapy/Recovery , pt reports constant underylying LBP that gets worse with walking, L hip pain occasionally with walking PT-OP-C Subjective Start: 07/04/19 10:26 Freq: Status: Active Protocol: Document 07/23/19 18:20 [facility] (Rec: 07/23/19 18:28 [facility] [id number]) OP-PT Subjective Patient Comments Patient Comments Pt reports she rolled her R ankle a little bit when walking the other day. Notes compliance with exercises and has been working on [employer] in mirror. PT-OP-D Balance Start: 07/04/19 10:26 Freq: Status: Active Protocol: Document 07/04/19 10:26 [facility] (Rec: 07/04/19 12:26 [facility] [id number]) Balance Tests Single Limb Standing Single Limb- Right >30 sec, 15 sec EC Single Limb- Left >30 sec EO, 14 sec EC Tandem Tandem Standing >30 sec B PT-OP-F Manual Assessment Start: 07/04/19 10:26 Freq: Status: Active Protocol: Document 07/04/19 10:26 [facility] (Rec: 07/04/19 12:26 [facility] [id number]) Manual Assessments Soft Tissue Assessment Soft Tissue Mobility Assessment tightness in L calf, peronials , pain along ATFL, PTFL Joint Mobility Assessment Joint Mobility Assessment patellar mobility WNL; L femur and tibia IR, R femur IR, tibia ER; pt has significant compenstated supinated foot postition PT-OP-G Mobility & Gait Start: 07/04/19 10:26 Freq: Status: Active Protocol: Document 07/04/19 10:26 [facility] (Rec: 07/04/19 12:46 [facility] [id number]) OP Gait Assessment Comments Gait Comments Pt amb with ER of L pelvis with push off. Dec push off L> R PT-OP-J Posture/Palpation/Skin Start: 07/04/19 10:26 Freq: Status: Active Protocol: Document 07/04/19 10:26 [facility] (Rec: 07/04/19 12:26 [facility] [id number]) Posture Evaluation [facility] Postural Classification System Lumbar Protective Mechanism Left AP 1 Lumbar Protective Mechanism Right AP 2 Lumbar Protective Mechanism Left PA 3 Lumbar Protective Mechanism Right PA 3 PT-OP-K Range of Motion Start: 07/04/19 10:26 Freq: Status: Active Protocol: Document 07/04/19 10:26 [facility] (Rec: 07/04/19 12:26 [facility] [id number]) Ankle and Foot Goniometric Range of Motion Ankle and Foot Right Active Dorsiflexion with Knee Flexed 12 Dorsiflexion with Knee Extended 0 Plantarflexion 55 Inversion 46 Eversion 17 Left Active Dorsiflexion with Knee Flexed 10 Dorsiflexion with Knee Extended 0 Plantarflexion 50 Inversion 41 Eversion 18 Ankle and Foot ROM Limitations Comments pain with inversion PT-OP-L Special Tests Start: 07/04/19 10:26 Freq: Status: Active Protocol: Document 07/04/19 10:26 [facility] (Rec: 07/04/19 12:26 [facility] [id number]) Special Tests Foot/Ankle Special Tests Talor Tilt Test Results neg Anterior Draw Test Results neg PT-OP-M Strength Start: 07/04/19 10:26 Freq: Status: Active Protocol: Document 07/04/19 10:26 [facility] (Rec: 07/04/19 12:26 [facility] [id number]) Hip Strength Hip Manual Muscle Testing Right Flexion (L2) 4+ Good+ Extension (S1) 4 Good Abduction 4 Good External Rotation 4- Good- Internal Rotation 4- Good- Left Flexion (L2) 4 Good Extension (S1) 3+ Fair+ Abduction 4- Good- External Rotation 3+ Fair+ Internal Rotation 3+ Fair+ Knee Strength Knee Manual Muscle Testing Right Flexion (S2) 5 Normal Extension (L3) 5 Normal Left Flexion (S2) 4 Good Extension (L3) 4 Good Comments pain with flex Ankle/Foot Strength Ankle and Foot Manual Muscle Testing Right Dorsiflexion (L4) 5 Normal Inversion 4+ Good+ Eversion (S1) 5 Normal Left Dorsiflexion (L4) 4 Good Plantarflexion (S1) 4+ Good+ Inversion 4 Good Eversion (S1) 4 Good PT-OP-Q Treatments Start: 07/04/19 10:26 Freq: Status: Active Protocol: Document 07/23/19 18:20 [facility] (Rec: 07/23/19 18:28 [facility] [id number]) Gym Equipment Shuttle Balance red clips Comments fwd & side: WBOS, NBOS, Wt shifts in WBOS fwd: staggered stance Therapeutic Exercises Standing Exercises lunges Side bilateral Reps/Minutes 5 Manual Therapy Treatment Soft Tissue Mobilization plantar fascia Body Location post Mobilization Type Rolling Intensity/Depth Moderate Joint Mobilizations distal tib/fib Joint AP fibula FM Comments supine talus Direction distraction, AP,med glide FM calcaneus Joint distraction, lat glide & tilt FM PT-OP-T Assessment and Plan Start: 07/04/19 10:26 Freq: Status: Active Protocol: Document 07/23/19 18:20 [facility] (Rec: 07/23/19 18:28 [facility] [id number]) Physical Therapy Assessment Goals flexibility Radio Division Officer Goal (LTG) Pt will have full ROM B without inc pain to allow for improved gait mechanics and stability on uneven surfaces. LTG Duration 09/03/19 strenth Short Term Goal (STG) Pt will be indep with HEP STG Duration 08/04/19 Radio Division Officer Goal (LTG) Pt will have 5/5 BLE strength and 4/5 LPM to show improved stability and dec pain with upright activities. LTG Duration 09/03/19 walking Short Term Goal (STG) Pt will be able to hike without ankle feeling unstable STG Duration 08/04/19 Prison Goal (LTG) Pt will be able to amb with good mechanics without pain with extended walking. LTG Duration 09/03/19 Assessment Summary Assessment Pt had difficulty in staggered stance and with sdie facing NBOS position on balance board . She was encouraged ot work on this in her free time at the [facility]. She cont to have signficant rear foot restrictions and did improve eversion mobility in rear foot with manual treatment. Physical Therapy Plan Frequency and Duration Frequency of Treatment 1-2x/week Duration of Treatment 2 months Plan of Care Start Date 07/11/19 Plan of Care End Date 09/10/19 Next Visit Focus/Plan Next Note Type Treatment Note Next Visit Plan work on STM & rear foot mobs, review lunges, teach self mobs
--- NOTE | 2019-07-30 18:39 | PT.OTN ---
Current Diagnoses Pain in left ankle and joints of left foot (07/30/19) Pain in left foot (07/30/19) Difficulty in walking, not elsewhere classified (07/30/19) Weakness (07/30/19) Physical Therapy Treatment Note PT-OP-A Visit Information Start: 07/04/19 10:26 Freq: Status: Active Protocol: Document 07/30/19 18:32 [facility] (Rec: 07/30/19 18:39 [facility] [id number]) Out-Patient Physical Therapy Visit Information Visit Information Visit Type Treatment Note Visit Start Time 16:03 Visit Stop Time 16:45 Total Visit Minutes 42 Visit Number 4 Number of IT CONSULTING MANAGER Visits 0 PT-OP-B Current Condition Start: 07/04/19 10:26 Freq: Status: Active Protocol: Document 07/04/19 10:26 [facility] (Rec: 07/04/19 12:26 [facility] [id number]) Current Condition History of Current Condition Onset Date February Current Complaints L lat ankle, heels lower leg and knee History of Current Condition Pt had insidious onset of L ankle pain laterally that has spread to L heel and lat lower leg up to knee and Pt has noticed L knee has been painful. Pt had swelling when it strated hurting and started wearing a compression brace. Pt reports it takes a couple hours of standing/walking/ being on her feet before she starts to notice. Knee starts to also hurt with extended walking on anterior and lat aspect. Pt typically goes for a walk daily about 30 min to 1 hour with occasional hiking. Notes ankle sometimes feels unstable with hiking. Prior Treatments and Tests none Treatment Goals Patient/Caregiver Goals Want to learn how to alleviate the pain, figure out whats wrong Personal Factors Other Personal Factors That May Effect L knee sx with occasional pain Therapy/Recovery , pt reports constant underylying LBP that gets worse with walking, L hip pain occasionally with walking PT-OP-C Subjective Start: 07/04/19 10:26 Freq: Status: Active Protocol: Document 07/30/19 18:32 [facility] (Rec: 07/30/19 18:39 [facility] [id number]) OP-PT Subjective Patient Comments Patient Comments Pt reports doing a lot of walking and L lat heel was sore after. Pt reprots compliance with HEP and intrisic mm exercises help her foot. PT-OP-D Balance Start: 07/04/19 10:26 Freq: Status: Active Protocol: Document 07/04/19 10:26 [facility] (Rec: 07/04/19 12:26 [facility] [id number]) Balance Tests Single Limb Standing Single Limb- Right >30 sec, 15 sec EC Single Limb- Left >30 sec EO, 14 sec EC Tandem Tandem Standing >30 sec B PT-OP-F Manual Assessment Start: 07/04/19 10:26 Freq: Status: Active Protocol: Document 07/04/19 10:26 [facility] (Rec: 07/04/19 12:26 [facility] [id number]) Manual Assessments Soft Tissue Assessment Soft Tissue Mobility Assessment tightness in L calf, peronials , pain along ATFL, PTFL Joint Mobility Assessment Joint Mobility Assessment patellar mobility WNL; L femur and tibia IR, R femur IR, tibia ER; pt has significant compenstated supinated foot postition PT-OP-G Mobility & Gait Start: 07/04/19 10:26 Freq: Status: Active Protocol: Document 07/04/19 10:26 [facility] (Rec: 07/04/19 12:46 [facility] [id number]) OP Gait Assessment Comments Gait Comments Pt amb with ER of L pelvis with push off. Dec push off L> R PT-OP-J Posture/Palpation/Skin Start: 07/04/19 10:26 Freq: Status: Active Protocol: Document 07/04/19 10:26 [facility] (Rec: 07/04/19 12:26 [facility] [id number]) Posture Evaluation [facility] Postural Classification System Lumbar Protective Mechanism Left AP 1 Lumbar Protective Mechanism Right AP 2 Lumbar Protective Mechanism Left PA 3 Lumbar Protective Mechanism Right PA 3 PT-OP-K Range of Motion Start: 07/04/19 10:26 Freq: Status: Active Protocol: Document 07/04/19 10:26 [facility] (Rec: 07/04/19 12:26 [facility] [id number]) Ankle and Foot Goniometric Range of Motion Ankle and Foot Right Active Dorsiflexion with Knee Flexed 12 Dorsiflexion with Knee Extended 0 Plantarflexion 55 Inversion 46 Eversion 17 Left Active Dorsiflexion with Knee Flexed 10 Dorsiflexion with Knee Extended 0 Plantarflexion 50 Inversion 41 Eversion 18 Ankle and Foot ROM Limitations Comments pain with inversion PT-OP-L Special Tests Start: 07/04/19 10:26 Freq: Status: Active Protocol: Document 07/04/19 10:26 [facility] (Rec: 07/04/19 12:26 [facility] [id number]) Special Tests Foot/Ankle Special Tests Talor Tilt Test Results neg Anterior Draw Test Results neg PT-OP-M Strength Start: 07/04/19 10:26 Freq: Status: Active Protocol: Document 07/04/19 10:26 [facility] (Rec: 07/04/19 12:26 [facility] [id number]) Hip Strength Hip Manual Muscle Testing Right Flexion (L2) 4+ Good+ Extension (S1) 4 Good Abduction 4 Good External Rotation 4- Good- Internal Rotation 4- Good- Left Flexion (L2) 4 Good Extension (S1) 3+ Fair+ Abduction 4- Good- External Rotation 3+ Fair+ Internal Rotation 3+ Fair+ Knee Strength Knee Manual Muscle Testing Right Flexion (S2) 5 Normal Extension (L3) 5 Normal Left Flexion (S2) 4 Good Extension (L3) 4 Good Comments pain with flex Ankle/Foot Strength Ankle and Foot Manual Muscle Testing Right Dorsiflexion (L4) 5 Normal Inversion 4+ Good+ Eversion (S1) 5 Normal Left Dorsiflexion (L4) 4 Good Plantarflexion (S1) 4+ Good+ Inversion 4 Good Eversion (S1) 4 Good PT-OP-Q Treatments Start: 07/04/19 10:26 Freq: Status: Active Protocol: Document 07/30/19 18:32 [facility] (Rec: 07/30/19 18:39 [facility] [id number]) Manual Therapy Treatment Soft Tissue Mobilization ankle Body Location L lat ankle Mobilization Type Myofascial Release Comments along lat calaneus & btwn peroneal & calf plantar fascia Body Location L Mobilization Type Rolling Intensity/Depth Moderate Joint Mobilizations cuneiforms Joint gapping L distal tib/fib Joint AP fibula FM Comments supine talus Direction distraction, AP,med glide FM calcaneus Joint distraction, lat glide & tilt FM PT-OP-T Assessment and Plan Start: 07/04/19 10:26 Freq: Status: Active Protocol: Document 07/30/19 18:32 [facility] (Rec: 07/30/19 18:39 [facility] [id number]) Physical Therapy Assessment Goals flexibility Outdoor Adventure Leader Goal (LTG) Pt will have full ROM B without inc pain to allow for improved gait mechanics and stability on uneven surfaces. LTG Duration 09/03/19 strenth Short Term Goal (STG) Pt will be indep with HEP STG Duration 08/04/19 Outdoor Adventure Leader Goal (LTG) Pt will have 5/5 BLE strength and 4/5 LPM to show improved stability and dec pain with upright activities. LTG Duration 09/03/19 walking Short Term Goal (STG) Pt will be able to hike without ankle feeling unstable STG Duration 08/04/19 Outdoor Adventure Leader Goal (LTG) Pt will be able to amb with good mechanics without pain with extended walking. LTG Duration 09/03/19 Assessment Summary Assessment Pt reported relief after session w/ankle feeling looser . Pt had significant restrictions in joints and soft tissue that liekly cause pain that improved with mobilization. Physical Therapy Plan Frequency and Duration Frequency of Treatment 1-2x/week Duration of Treatment 2 months Plan of Care Start Date 07/11/19 Plan of Care End Date 09/10/19 Next Visit Focus/Plan Next Note Type Treatment Note Next Visit Plan work on STM & rear foot mobs, look at superfeet for pt, teach self mobs
--- NOTE | 2019-08-06 17:16 | PT.OTN ---
Current Diagnoses Pain in left ankle and joints of left foot (08/06/19) Pain in left foot (08/06/19) Difficulty in walking, not elsewhere classified (08/06/19) Weakness (08/06/19) Physical Therapy Treatment Note PT-OP-A Visit Information Start: 07/04/19 10:26 Freq: Status: Active Protocol: Document 08/06/19 16:15 [facility] (Rec: 08/06/19 17:16 [facility] [id number]) Out-Patient Physical Therapy Visit Information Visit Information Visit Type Treatment Note Visit Start Time 16:19 Visit Stop Time 17:08 Total Visit Minutes 49 Visit Number 5 Number of YARN WEIGHT AND STRENGTH TESTER Visits 0 PT-OP-B Current Condition Start: 07/04/19 10:26 Freq: Status: Active Protocol: Document 07/04/19 10:26 [facility] (Rec: 07/04/19 12:26 [facility] [id number]) Current Condition History of Current Condition Onset Date February Current Complaints L lat ankle, heels lower leg and knee History of Current Condition Pt had insidious onset of L ankle pain laterally that has spread to L heel and lat lower leg up to knee and Pt has noticed L knee has been painful. Pt had swelling when it strated hurting and started wearing a compression brace. Pt reports it takes a couple hours of standing/walking/ being on her feet before she starts to notice. Knee starts to also hurt with extended walking on anterior and lat aspect. Pt typically goes for a walk daily about 30 min to 1 hour with occasional hiking. Notes ankle sometimes feels unstable with hiking. Prior Treatments and Tests none Treatment Goals Patient/Caregiver Goals Want to learn how to alleviate the pain, figure out whats wrong Personal Factors Other Personal Factors That May Effect L knee sx with occasional pain Therapy/Recovery , pt reports constant underylying LBP that gets worse with walking, L hip pain occasionally with walking PT-OP-C Subjective Start: 07/04/19 10:26 Freq: Status: Active Protocol: Document 08/06/19 16:15 [facility] (Rec: 08/06/19 17:16 [facility] [id number]) OP-PT Subjective Patient Comments Patient Comments Pt reports PT-OP-D Balance Start: 07/04/19 10:26 Freq: Status: Active Protocol: Document 07/04/19 10:26 [facility] (Rec: 07/04/19 12:26 [facility] [id number]) Balance Tests Single Limb Standing Single Limb- Right >30 sec, 15 sec EC Single Limb- Left >30 sec EO, 14 sec EC Tandem Tandem Standing >30 sec B PT-OP-F Manual Assessment Start: 07/04/19 10:26 Freq: Status: Active Protocol: Document 07/04/19 10:26 [facility] (Rec: 07/04/19 12:26 [facility] [id number]) Manual Assessments Soft Tissue Assessment Soft Tissue Mobility Assessment tightness in L calf, peronials , pain along ATFL, PTFL Joint Mobility Assessment Joint Mobility Assessment patellar mobility WNL; L femur and tibia IR, R femur IR, tibia ER; pt has significant compenstated supinated foot postition PT-OP-G Mobility & Gait Start: 07/04/19 10:26 Freq: Status: Active Protocol: Document 07/04/19 10:26 [facility] (Rec: 07/04/19 12:46 [facility] [id number]) OP Gait Assessment Comments Gait Comments Pt amb with ER of L pelvis with push off. Dec push off L> R PT-OP-J Posture/Palpation/Skin Start: 07/04/19 10:26 Freq: Status: Active Protocol: Document 07/04/19 10:26 [facility] (Rec: 07/04/19 12:26 [facility] [id number]) Posture Evaluation [facility] Postural Classification System Lumbar Protective Mechanism Left AP 1 Lumbar Protective Mechanism Right AP 2 Lumbar Protective Mechanism Left PA 3 Lumbar Protective Mechanism Right PA 3 PT-OP-K Range of Motion Start: 07/04/19 10:26 Freq: Status: Active Protocol: Document 07/04/19 10:26 [facility] (Rec: 07/04/19 12:26 [facility] [id number]) Ankle and Foot Goniometric Range of Motion Ankle and Foot Right Active Dorsiflexion with Knee Flexed 12 Dorsiflexion with Knee Extended 0 Plantarflexion 55 Inversion 46 Eversion 17 Left Active Dorsiflexion with Knee Flexed 10 Dorsiflexion with Knee Extended 0 Plantarflexion 50 Inversion 41 Eversion 18 Ankle and Foot ROM Limitations Comments pain with inversion PT-OP-L Special Tests Start: 07/04/19 10:26 Freq: Status: Active Protocol: Document 07/04/19 10:26 [facility] (Rec: 07/04/19 12:26 [facility] [id number]) Special Tests Foot/Ankle Special Tests Talor Tilt Test Results neg Anterior Draw Test Results neg PT-OP-M Strength Start: 07/04/19 10:26 Freq: Status: Active Protocol: Document 07/04/19 10:26 [facility] (Rec: 07/04/19 12:26 [facility] [id number]) Hip Strength Hip Manual Muscle Testing Right Flexion (L2) 4+ Good+ Extension (S1) 4 Good Abduction 4 Good External Rotation 4- Good- Internal Rotation 4- Good- Left Flexion (L2) 4 Good Extension (S1) 3+ Fair+ Abduction 4- Good- External Rotation 3+ Fair+ Internal Rotation 3+ Fair+ Knee Strength Knee Manual Muscle Testing Right Flexion (S2) 5 Normal Extension (L3) 5 Normal Left Flexion (S2) 4 Good Extension (L3) 4 Good Comments pain with flex Ankle/Foot Strength Ankle and Foot Manual Muscle Testing Right Dorsiflexion (L4) 5 Normal Inversion 4+ Good+ Eversion (S1) 5 Normal Left Dorsiflexion (L4) 4 Good Plantarflexion (S1) 4+ Good+ Inversion 4 Good Eversion (S1) 4 Good PT-OP-Q Treatments Start: 07/04/19 10:26 Freq: Status: Active Protocol: Document 08/06/19 16:15 [facility] (Rec: 08/06/19 17:16 [facility] [id number]) Gait Training Gait Activity gait at wall Description for ant elevation/post depression Comments 10 sec hold at wall wt shifts Description in mirror for wt acceptance Manual Therapy Treatment Soft Tissue Mobilization ankle Body Location L lat ankle Mobilization Type Myofascial Release Comments along lat calaneus & btwn peroneal & calf plantar fascia Body Location L Mobilization Type Rolling Intensity/Depth Moderate Joint Mobilizations cuneiforms Joint gapping L distal tib/fib Joint AP tibia FM Comments supine talus Direction distraction, AP,med glide FM calcaneus Joint distraction & lat glide FM PT-OP-T Assessment and Plan Start: 07/04/19 10:26 Freq: Status: Active Protocol: Document 08/06/19 16:15 [facility] (Rec: 08/06/19 17:16 [facility] [id number]) Physical Therapy Assessment Goals flexibility Jail Goal (LTG) Pt will have full ROM B without inc pain to allow for improved gait mechanics and stability on uneven surfaces. LTG Duration 09/03/19 strenth Short Term Goal (STG) Pt will be indep with HEP STG Duration 08/04/19 Director Of Business Applications Goal (LTG) Pt will have 5/5 BLE strength and 4/5 LPM to show improved stability and dec pain with upright activities. LTG Duration 09/03/19 walking Short Term Goal (STG) Pt will be able to hike without ankle feeling unstable STG Duration 08/04/19 Jail Goal (LTG) Pt will be able to amb with good mechanics without pain with extended walking. LTG Duration 09/03/19 Assessment Summary Assessment Pt had clicking at start of session that went away after treatment. She had difficultyw ith wt acceptance onto LLE and required holding outside support for good mechanics. Physical Therapy Plan Frequency and Duration Frequency of Treatment 1-2x/week Duration of Treatment 2 months Plan of Care Start Date 07/11/19 Plan of Care End Date 09/10/19 Next Visit Focus/Plan Next Note Type Treatment Note Next Visit Plan work on STM & rear foot mobs, look at superfeet for pt, teach self mobs
--- NOTE | 2019-08-13 15:37 | PT.OTN ---
Current Diagnoses Pain in left ankle and joints of left foot (08/13/19) Pain in left foot (08/13/19) Difficulty in walking, not elsewhere classified (08/13/19) Weakness (08/13/19) Physical Therapy Treatment Note PT-OP-A Visit Information Start: 07/04/19 10:26 Freq: Status: Active Protocol: Document 08/13/19 15:49 [facility] (Rec: 08/14/19 08:52 [facility] [id number]) Out-Patient Physical Therapy Visit Information Visit Information Visit Start Time 16:06 Visit Stop Time 16:45 Total Visit Minutes 39 Visit Number 6 Number of LEVEL VIAL INSPECTOR Visits 0 PT-OP-B Current Condition Start: 07/04/19 10:26 Freq: Status: Active Protocol: Document 07/04/19 10:26 [facility] (Rec: 07/04/19 12:26 [facility] [id number]) Current Condition History of Current Condition Onset Date February Current Complaints L lat ankle, heels lower leg and knee History of Current Condition Pt had insidious onset of L ankle pain laterally that has spread to L heel and lat lower leg up to knee and Pt has noticed L knee has been painful. Pt had swelling when it strated hurting and started wearing a compression brace. Pt reports it takes a couple hours of standing/walking/ being on her feet before she starts to notice. Knee starts to also hurt with extended walking on anterior and lat aspect. Pt typically goes for a walk daily about 30 min to 1 hour with occasional hiking. Notes ankle sometimes feels unstable with hiking. Prior Treatments and Tests none Treatment Goals Patient/Caregiver Goals Want to learn how to alleviate the pain, figure out whats wrong Personal Factors Other Personal Factors That May Effect L knee sx with occasional pain Therapy/Recovery , pt reports constant underylying LBP that gets worse with walking, L hip pain occasionally with walking PT-OP-C Subjective Start: 07/04/19 10:26 Freq: Status: Active Protocol: Document 08/13/19 15:49 [facility] (Rec: 08/14/19 08:52 [facility] [id number]) OP-PT Subjective Patient Comments Patient Comments Pt reports pain only with long walks but it goes away faster Patient Reported Progress Improving PT-OP-D Balance Start: 07/04/19 10:26 Freq: Status: Active Protocol: Document 07/04/19 10:26 [facility] (Rec: 07/04/19 12:26 [facility] [id number]) Balance Tests Single Limb Standing Single Limb- Right >30 sec, 15 sec EC Single Limb- Left >30 sec EO, 14 sec EC Tandem Tandem Standing >30 sec B PT-OP-F Manual Assessment Start: 07/04/19 10:26 Freq: Status: Active Protocol: Document 07/04/19 10:26 [facility] (Rec: 07/04/19 12:26 [facility] [id number]) Manual Assessments Soft Tissue Assessment Soft Tissue Mobility Assessment tightness in L calf, peronials , pain along ATFL, PTFL Joint Mobility Assessment Joint Mobility Assessment patellar mobility WNL; L femur and tibia IR, R femur IR, tibia ER; pt has significant compenstated supinated foot postition PT-OP-G Mobility & Gait Start: 07/04/19 10:26 Freq: Status: Active Protocol: Document 07/04/19 10:26 [facility] (Rec: 07/04/19 12:46 [facility] [id number]) OP Gait Assessment Comments Gait Comments Pt amb with ER of L pelvis with push off. Dec push off L> R PT-OP-J Posture/Palpation/Skin Start: 07/04/19 10:26 Freq: Status: Active Protocol: Document 07/04/19 10:26 [facility] (Rec: 07/04/19 12:26 [facility] [id number]) Posture Evaluation [facility] Postural Classification System Lumbar Protective Mechanism Left AP 1 Lumbar Protective Mechanism Right AP 2 Lumbar Protective Mechanism Left PA 3 Lumbar Protective Mechanism Right PA 3 PT-OP-K Range of Motion Start: 07/04/19 10:26 Freq: Status: Active Protocol: Document 07/04/19 10:26 [facility] (Rec: 07/04/19 12:26 [facility] [id number]) Ankle and Foot Goniometric Range of Motion Ankle and Foot Right Active Dorsiflexion with Knee Flexed 12 Dorsiflexion with Knee Extended 0 Plantarflexion 55 Inversion 46 Eversion 17 Left Active Dorsiflexion with Knee Flexed 10 Dorsiflexion with Knee Extended 0 Plantarflexion 50 Inversion 41 Eversion 18 Ankle and Foot ROM Limitations Comments pain with inversion PT-OP-L Special Tests Start: 07/04/19 10:26 Freq: Status: Active Protocol: Document 07/04/19 10:26 [facility] (Rec: 07/04/19 12:26 [facility] [id number]) Special Tests Foot/Ankle Special Tests Talor Tilt Test Results neg Anterior Draw Test Results neg PT-OP-M Strength Start: 07/04/19 10:26 Freq: Status: Active Protocol: Document 07/04/19 10:26 [facility] (Rec: 07/04/19 12:26 [facility] [id number]) Hip Strength Hip Manual Muscle Testing Right Flexion (L2) 4+ Good+ Extension (S1) 4 Good Abduction 4 Good External Rotation 4- Good- Internal Rotation 4- Good- Left Flexion (L2) 4 Good Extension (S1) 3+ Fair+ Abduction 4- Good- External Rotation 3+ Fair+ Internal Rotation 3+ Fair+ Knee Strength Knee Manual Muscle Testing Right Flexion (S2) 5 Normal Extension (L3) 5 Normal Left Flexion (S2) 4 Good Extension (L3) 4 Good Comments pain with flex Ankle/Foot Strength Ankle and Foot Manual Muscle Testing Right Dorsiflexion (L4) 5 Normal Inversion 4+ Good+ Eversion (S1) 5 Normal Left Dorsiflexion (L4) 4 Good Plantarflexion (S1) 4+ Good+ Inversion 4 Good Eversion (S1) 4 Good PT-OP-Q Treatments Start: 07/04/19 10:26 Freq: Status: Active Protocol: Document 08/13/19 15:49 [facility] (Rec: 08/14/19 08:52 [facility] [id number]) Manual Therapy Treatment Joint Mobilizations distal tib/fib Joint AP tibia FM Comments supine talus Direction distraction, AP,med glide FM calcaneus Joint distraction & lat glide FM Self-Care/Home Management Treatment Education Other Education edu on new walking shoes, discussed getting running shoes with more support. Edu on important things to look for when shopping, edu on super feet and tried on blue and green options PT-OP-T Assessment and Plan Start: 07/04/19 10:26 Freq: Status: Active Protocol: Document 08/13/19 15:49 [facility] (Rec: 08/14/19 08:52 [facility] [id number]) Physical Therapy Assessment Goals flexibility Lace Roller Goal (LTG) Pt will have full ROM B without inc pain to allow for improved gait mechanics and stability on uneven surfaces. LTG Duration 09/03/19 strenth Short Term Goal (STG) Pt will be indep with HEP STG Duration 08/04/19 Lace Roller Goal (LTG) Pt will have 5/5 BLE strength and 4/5 LPM to show improved stability and dec pain with upright activities. LTG Duration 09/03/19 walking Short Term Goal (STG) Pt will be able to hike without ankle feeling unstable STG Duration 08/04/19 Intermediate Goal (LTG) Pt will be able to amb with good mechanics without pain with extended walking. LTG Duration 09/03/19 Assessment Summary Assessment Pt had improved PF with eversion after manual treatment today. No clicking with PROM after treatment. Education given for new shoes for better support for long walks Physical Therapy Plan Frequency and Duration Frequency of Treatment 1-2x/week Duration of Treatment 2 months Plan of Care Start Date 07/11/19 Plan of Care End Date 09/10/19 Next Visit Focus/Plan Next Note Type Treatment Note Next Visit Plan work on STM & rear foot mobs, look at superfeet for pt, teach self mobs
--- NOTE | 2019-08-14 08:52 | PT.OTN ---
Current Diagnoses Pain in left ankle and joints of left foot (08/13/19) Pain in left foot (08/13/19) Difficulty in walking, not elsewhere classified (08/13/19) Weakness (08/13/19) Physical Therapy Treatment Note PT-OP-A Visit Information Start: 07/04/19 10:26 Freq: Status: Active Protocol: Document 08/14/19 08:49 [facility] (Rec: 08/14/19 08:52 [facility] [id number]) Out-Patient Physical Therapy Visit Information Visit Information Visit Start Time 16:06 Visit Stop Time 16:45 Total Visit Minutes 39 Visit Number 6 Number of EMERGENCY OPERATOR Visits 0 PT-OP-B Current Condition Start: 07/04/19 10:26 Freq: Status: Active Protocol: Document 07/04/19 10:26 [facility] (Rec: 07/04/19 12:26 [facility] [id number]) Current Condition History of Current Condition Onset Date February Current Complaints L lat ankle, heels lower leg and knee History of Current Condition Pt had insidious onset of L ankle pain laterally that has spread to L heel and lat lower leg up to knee and Pt has noticed L knee has been painful. Pt had swelling when it strated hurting and started wearing a compression brace. Pt reports it takes a couple hours of standing/walking/ being on her feet before she starts to notice. Knee starts to also hurt with extended walking on anterior and lat aspect. Pt typically goes for a walk daily about 30 min to 1 hour with occasional hiking. Notes ankle sometimes feels unstable with hiking. Prior Treatments and Tests none Treatment Goals Patient/Caregiver Goals Want to learn how to alleviate the pain, figure out whats wrong Personal Factors Other Personal Factors That May Effect L knee sx with occasional pain Therapy/Recovery , pt reports constant underylying LBP that gets worse with walking, L hip pain occasionally with walking PT-OP-C Subjective Start: 07/04/19 10:26 Freq: Status: Active Protocol: Document 08/14/19 08:49 [facility] (Rec: 08/14/19 08:52 [facility] [id number]) OP-PT Subjective Patient Comments Patient Comments Pt reports pain only with long walks but it goes away faster Patient Reported Progress Improving PT-OP-D Balance Start: 07/04/19 10:26 Freq: Status: Active Protocol: Document 07/04/19 10:26 [facility] (Rec: 07/04/19 12:26 [facility] [id number]) Balance Tests Single Limb Standing Single Limb- Right >30 sec, 15 sec EC Single Limb- Left >30 sec EO, 14 sec EC Tandem Tandem Standing >30 sec B PT-OP-F Manual Assessment Start: 07/04/19 10:26 Freq: Status: Active Protocol: Document 07/04/19 10:26 [facility] (Rec: 07/04/19 12:26 [facility] [id number]) Manual Assessments Soft Tissue Assessment Soft Tissue Mobility Assessment tightness in L calf, peronials , pain along ATFL, PTFL Joint Mobility Assessment Joint Mobility Assessment patellar mobility WNL; L femur and tibia IR, R femur IR, tibia ER; pt has significant compenstated supinated foot postition PT-OP-G Mobility & Gait Start: 07/04/19 10:26 Freq: Status: Active Protocol: Document 07/04/19 10:26 [facility] (Rec: 07/04/19 12:46 [facility] [id number]) OP Gait Assessment Comments Gait Comments Pt amb with ER of L pelvis with push off. Dec push off L> R PT-OP-J Posture/Palpation/Skin Start: 07/04/19 10:26 Freq: Status: Active Protocol: Document 07/04/19 10:26 [facility] (Rec: 07/04/19 12:26 [facility] [id number]) Posture Evaluation [facility] Postural Classification System Lumbar Protective Mechanism Left AP 1 Lumbar Protective Mechanism Right AP 2 Lumbar Protective Mechanism Left PA 3 Lumbar Protective Mechanism Right PA 3 PT-OP-K Range of Motion Start: 07/04/19 10:26 Freq: Status: Active Protocol: Document 07/04/19 10:26 [facility] (Rec: 07/04/19 12:26 [facility] [id number]) Ankle and Foot Goniometric Range of Motion Ankle and Foot Right Active Dorsiflexion with Knee Flexed 12 Dorsiflexion with Knee Extended 0 Plantarflexion 55 Inversion 46 Eversion 17 Left Active Dorsiflexion with Knee Flexed 10 Dorsiflexion with Knee Extended 0 Plantarflexion 50 Inversion 41 Eversion 18 Ankle and Foot ROM Limitations Comments pain with inversion PT-OP-L Special Tests Start: 07/04/19 10:26 Freq: Status: Active Protocol: Document 07/04/19 10:26 [facility] (Rec: 07/04/19 12:26 [facility] [id number]) Special Tests Foot/Ankle Special Tests Talor Tilt Test Results neg Anterior Draw Test Results neg PT-OP-M Strength Start: 07/04/19 10:26 Freq: Status: Active Protocol: Document 07/04/19 10:26 [facility] (Rec: 07/04/19 12:26 [facility] [id number]) Hip Strength Hip Manual Muscle Testing Right Flexion (L2) 4+ Good+ Extension (S1) 4 Good Abduction 4 Good External Rotation 4- Good- Internal Rotation 4- Good- Left Flexion (L2) 4 Good Extension (S1) 3+ Fair+ Abduction 4- Good- External Rotation 3+ Fair+ Internal Rotation 3+ Fair+ Knee Strength Knee Manual Muscle Testing Right Flexion (S2) 5 Normal Extension (L3) 5 Normal Left Flexion (S2) 4 Good Extension (L3) 4 Good Comments pain with flex Ankle/Foot Strength Ankle and Foot Manual Muscle Testing Right Dorsiflexion (L4) 5 Normal Inversion 4+ Good+ Eversion (S1) 5 Normal Left Dorsiflexion (L4) 4 Good Plantarflexion (S1) 4+ Good+ Inversion 4 Good Eversion (S1) 4 Good PT-OP-Q Treatments Start: 07/04/19 10:26 Freq: Status: Active Protocol: Document 08/14/19 08:49 [facility] (Rec: 08/14/19 08:52 [facility] [id number]) Manual Therapy Treatment Joint Mobilizations distal tib/fib Joint AP tibia FM Comments supine talus Direction distraction, AP,med glide FM calcaneus Joint distraction & lat glide FM Self-Care/Home Management Treatment Education Other Education edu on new walking shoes, discussed getting running shoes with more support. Edu on important things to look for when shopping, edu on super feet and tried on blue and green options PT-OP-T Assessment and Plan Start: 07/04/19 10:26 Freq: Status: Active Protocol: Document 08/14/19 08:49 [facility] (Rec: 08/14/19 08:52 [facility] [id number]) Physical Therapy Assessment Goals flexibility Power Marketer Goal (LTG) Pt will have full ROM B without inc pain to allow for improved gait mechanics and stability on uneven surfaces. LTG Duration 09/03/19 strenth Short Term Goal (STG) Pt will be indep with HEP STG Duration 08/04/19 Power Marketer Goal (LTG) Pt will have 5/5 BLE strength and 4/5 LPM to show improved stability and dec pain with upright activities. LTG Duration 09/03/19 walking Short Term Goal (STG) Pt will be able to hike without ankle feeling unstable STG Duration 08/04/19 Penitentiary Goal (LTG) Pt will be able to amb with good mechanics without pain with extended walking. LTG Duration 09/03/19 Assessment Summary Assessment Pt had improved PF with eversion after manual treatment today. No clicking with PROM after treatment. Education given for new shoes for better support for long walks Physical Therapy Plan Frequency and Duration Frequency of Treatment 1-2x/week Duration of Treatment 2 months Plan of Care Start Date 07/11/19 Plan of Care End Date 09/10/19 Next Visit Focus/Plan Next Note Type Treatment Note Next Visit Plan work on STM & rear foot mobs, look at superfeet for pt, teach self mobs
--- NOTE | 2019-08-27 17:06 | PT.OTN ---
Current Diagnoses Pain in left ankle and joints of left foot (08/27/19) Pain in left foot (08/27/19) Difficulty in walking, not elsewhere classified (08/27/19) Weakness (08/27/19) Physical Therapy Treatment Note PT-OP-A Visit Information Start: 07/04/19 10:26 Freq: Status: Active Protocol: Document 08/27/19 16:55 [facility] (Rec: 08/27/19 17:05 [facility] [id number]) Out-Patient Physical Therapy Visit Information Visit Information Visit Type Treatment Note Visit Start Time 16:04 Visit Stop Time 16:46 Total Visit Minutes 42 Visit Number 7 Number of FOREST FIRE OFFICER Visits 0 PT-OP-B Current Condition Start: 07/04/19 10:26 Freq: Status: Active Protocol: Document 07/04/19 10:26 [facility] (Rec: 07/04/19 12:26 [facility] [id number]) Current Condition History of Current Condition Onset Date February Current Complaints L lat ankle, heels lower leg and knee History of Current Condition Pt had insidious onset of L ankle pain laterally that has spread to L heel and lat lower leg up to knee and Pt has noticed L knee has been painful. Pt had swelling when it strated hurting and started wearing a compression brace. Pt reports it takes a couple hours of standing/walking/ being on her feet before she starts to notice. Knee starts to also hurt with extended walking on anterior and lat aspect. Pt typically goes for a walk daily about 30 min to 1 hour with occasional hiking. Notes ankle sometimes feels unstable with hiking. Prior Treatments and Tests none Treatment Goals Patient/Caregiver Goals Want to learn how to alleviate the pain, figure out whats wrong Personal Factors Other Personal Factors That May Effect L knee sx with occasional pain Therapy/Recovery , pt reports constant underylying LBP that gets worse with walking, L hip pain occasionally with walking PT-OP-C Subjective Start: 07/04/19 10:26 Freq: Status: Active Protocol: Document 08/27/19 16:55 [facility] (Rec: 08/27/19 17:05 [facility] [id number]) OP-PT Subjective Patient Comments Patient Comments Pt reprots not having a ton of time to exercise this weekend . She did not do any long walks. Ankles doing okay PT-OP-D Balance Start: 07/04/19 10:26 Freq: Status: Active Protocol: Document 07/04/19 10:26 [facility] (Rec: 07/04/19 12:26 [facility] [id number]) Balance Tests Single Limb Standing Single Limb- Right >30 sec, 15 sec EC Single Limb- Left >30 sec EO, 14 sec EC Tandem Tandem Standing >30 sec B PT-OP-F Manual Assessment Start: 07/04/19 10:26 Freq: Status: Active Protocol: Document 07/04/19 10:26 [facility] (Rec: 07/04/19 12:26 [facility] [id number]) Manual Assessments Soft Tissue Assessment Soft Tissue Mobility Assessment tightness in L calf, peronials , pain along ATFL, PTFL Joint Mobility Assessment Joint Mobility Assessment patellar mobility WNL; L femur and tibia IR, R femur IR, tibia ER; pt has significant compenstated supinated foot postition PT-OP-G Mobility & Gait Start: 07/04/19 10:26 Freq: Status: Active Protocol: Document 07/04/19 10:26 [facility] (Rec: 07/04/19 12:46 [facility] [id number]) OP Gait Assessment Comments Gait Comments Pt amb with ER of L pelvis with push off. Dec push off L> R PT-OP-J Posture/Palpation/Skin Start: 07/04/19 10:26 Freq: Status: Active Protocol: Document 07/04/19 10:26 [facility] (Rec: 07/04/19 12:26 [facility] [id number]) Posture Evaluation [facility] Postural Classification System Lumbar Protective Mechanism Left AP 1 Lumbar Protective Mechanism Right AP 2 Lumbar Protective Mechanism Left PA 3 Lumbar Protective Mechanism Right PA 3 PT-OP-K Range of Motion Start: 07/04/19 10:26 Freq: Status: Active Protocol: Document 07/04/19 10:26 [facility] (Rec: 07/04/19 12:26 [facility] [id number]) Ankle and Foot Goniometric Range of Motion Ankle and Foot Right Active Dorsiflexion with Knee Flexed 12 Dorsiflexion with Knee Extended 0 Plantarflexion 55 Inversion 46 Eversion 17 Left Active Dorsiflexion with Knee Flexed 10 Dorsiflexion with Knee Extended 0 Plantarflexion 50 Inversion 41 Eversion 18 Ankle and Foot ROM Limitations Comments pain with inversion PT-OP-L Special Tests Start: 07/04/19 10:26 Freq: Status: Active Protocol: Document 07/04/19 10:26 [facility] (Rec: 07/04/19 12:26 [facility] [id number]) Special Tests Foot/Ankle Special Tests Talor Tilt Test Results neg Anterior Draw Test Results neg PT-OP-M Strength Start: 07/04/19 10:26 Freq: Status: Active Protocol: Document 07/04/19 10:26 [facility] (Rec: 07/04/19 12:26 [facility] [id number]) Hip Strength Hip Manual Muscle Testing Right Flexion (L2) 4+ Good+ Extension (S1) 4 Good Abduction 4 Good External Rotation 4- Good- Internal Rotation 4- Good- Left Flexion (L2) 4 Good Extension (S1) 3+ Fair+ Abduction 4- Good- External Rotation 3+ Fair+ Internal Rotation 3+ Fair+ Knee Strength Knee Manual Muscle Testing Right Flexion (S2) 5 Normal Extension (L3) 5 Normal Left Flexion (S2) 4 Good Extension (L3) 4 Good Comments pain with flex Ankle/Foot Strength Ankle and Foot Manual Muscle Testing Right Dorsiflexion (L4) 5 Normal Inversion 4+ Good+ Eversion (S1) 5 Normal Left Dorsiflexion (L4) 4 Good Plantarflexion (S1) 4+ Good+ Inversion 4 Good Eversion (S1) 4 Good PT-OP-Q Treatments Start: 07/04/19 10:26 Freq: Status: Active Protocol: Document 08/27/19 16:55 [facility] (Rec: 08/27/19 17:05 [facility] [id number]) Gym Equipment Sport Cord red Exercise Details walking Cord/Resistance fwd focus on push off Gait Training Gait Activity gait Comments 1. in mirror focusing on push off and wt acceptance 2. resisted with dowel gait at wall Description for ant elevation/post depression Comments 10 sec hold at wallx 2 B wt shifts Description in mirror for wt acceptance Comments w/stop into SLS to focus on full wt acceptance Manual Therapy Treatment Soft Tissue Mobilization QL Body Location b Mobilization Type Rolling Intensity/Depth Moderate Comments w/pelvisp patterns Neuro Re-Education Treatment Other Activities PNF Details ant elevation & post depression Reps/Duration B Comments 1. rhythmic initiation 2. concentric w/pelvis ea range 3.Combo of isotonics w/pelvis only then w/LE patterns 4. concentric reversals w/LE patterns PT-OP-T Assessment and Plan Start: 07/04/19 10:26 Freq: Status: Active Protocol: Document 08/27/19 16:55 [facility] (Rec: 08/27/19 17:05 [facility] [id number]) Physical Therapy Assessment Goals flexibility Jail Goal (LTG) Pt will have full ROM B without inc pain to allow for improved gait mechanics and stability on uneven surfaces. LTG Duration 09/03/19 strenth Short Term Goal (STG) Pt will be indep with HEP STG Duration 08/04/19 Dip Tube Assembler Machine Goal (LTG) Pt will have 5/5 BLE strength and 4/5 LPM to show improved stability and dec pain with upright activities. LTG Duration 09/03/19 walking Short Term Goal (STG) Pt will be able to hike without ankle feeling unstable STG Duration 08/04/19 Dip Tube Assembler Machine Goal (LTG) Pt will be able to amb with good mechanics without pain with extended walking. LTG Duration 09/03/19 Assessment Summary Assessment Pt cont to have dec push off with gait and dec wt acceptance B whcih likely affects pain with custodial gait. Worked on PNF patterns in s/l to improve this and manual treatmetnt o improve PNF patterns to inc ability for pt to use trunk and glutes during push off and post depression. She improved with gait pattern after significant cueing, use of mirror and use of resisted gait ot faciliate full push off. Physical Therapy Plan Frequency and Duration Frequency of Treatment 1-2x/week Duration of Treatment 2 months Plan of Care Start Date 07/11/19 Plan of Care End Date 09/10/19 Next Visit Focus/Plan Next Note Type Progress Note Next Visit Plan assess progress and detrmine focus, work on gait
--- NOTE | 2019-10-18 08:32 | PT.OPDS ---
Current Diagnoses Pain in left ankle and joints of left foot (08/27/19) Pain in left foot (08/27/19) Difficulty in walking, not elsewhere classified (08/27/19) Weakness (08/27/19) Visit Care Team Role Provider Type ANDREEA Childers Attending Provider Advanced Patient Care Manager Primary Care Provider Referring Provider Specialty: [facility] Address: [address] [place] [address], [facility] Email: [email or web address] Visit Number Visit Number 7 Discharge Summary PT-OP-B Current Condition Start: 07/04/19 10:26 Freq: Status: Active Protocol: Document 07/04/19 10:26 [facility] (Rec: 07/04/19 12:26 [facility] [id number]) Current Condition History of Current Condition Onset Date February Current Complaints L lat ankle, heels lower leg and knee History of Current Condition Pt had insidious onset of L ankle pain laterally that has spread to L heel and lat lower leg up to knee and Pt has noticed L knee has been painful. Pt had swelling when it strated hurting and started wearing a compression brace. Pt reports it takes a couple hours of standing/walking/ being on her feet before she starts to notice. Knee starts to also hurt with extended walking on anterior and lat aspect. Pt typically goes for a walk daily about 30 min to 1 hour with occasional hiking. Notes ankle sometimes feels unstable with hiking. Prior Treatments and Tests none Treatment Goals Patient/Caregiver Goals Want to learn how to alleviate the pain, figure out whats wrong Personal Factors Other Personal Factors That May Effect L knee sx with occasional pain Therapy/Recovery , pt reports constant underylying LBP that gets worse with walking, L hip pain occasionally with walking PT-OP-C Subjective Start: 07/04/19 10:26 Freq: Status: Active Protocol: Document 08/27/19 16:55 [facility] (Rec: 08/27/19 17:05 [facility] [id number]) OP-PT Subjective Patient Comments Patient Comments Pt reprots not having a ton of time to exercise this weekend . She did not do any long walks. Ankles doing okay PT-OP-D Balance Start: 07/04/19 10:26 Freq: Status: Active Protocol: Document 07/04/19 10:26 [facility] (Rec: 07/04/19 12:26 [facility] [id number]) Balance Tests Single Limb Standing Single Limb- Right >30 sec, 15 sec EC Single Limb- Left >30 sec EO, 14 sec EC Tandem Tandem Standing >30 sec B PT-OP-F Manual Assessment Start: 07/04/19 10:26 Freq: Status: Active Protocol: Document 07/04/19 10:26 [facility] (Rec: 07/04/19 12:26 [facility] [id number]) Manual Assessments Soft Tissue Assessment Soft Tissue Mobility Assessment tightness in L calf, peronials , pain along ATFL, PTFL Joint Mobility Assessment Joint Mobility Assessment patellar mobility WNL; L femur and tibia IR, R femur IR, tibia ER; pt has significant compenstated supinated foot postition PT-OP-G Mobility & Gait Start: 07/04/19 10:26 Freq: Status: Active Protocol: Document 07/04/19 10:26 [facility] (Rec: 07/04/19 12:46 [facility] [id number]) OP Gait Assessment Comments Gait Comments Pt amb with ER of L pelvis with push off. Dec push off L> R PT-OP-J Posture/Palpation/Skin Start: 07/04/19 10:26 Freq: Status: Active Protocol: Document 07/04/19 10:26 [facility] (Rec: 07/04/19 12:26 [facility] [id number]) Posture Evaluation [facility] Postural Classification System Lumbar Protective Mechanism Left AP 1 Lumbar Protective Mechanism Right AP 2 Lumbar Protective Mechanism Left PA 3 Lumbar Protective Mechanism Right PA 3 PT-OP-K Range of Motion Start: 07/04/19 10:26 Freq: Status: Active Protocol: Document 07/04/19 10:26 [facility] (Rec: 07/04/19 12:26 [facility] [id number]) Ankle and Foot Goniometric Range of Motion Ankle and Foot Right Active Dorsiflexion with Knee Flexed 12 Dorsiflexion with Knee Extended 0 Plantarflexion 55 Inversion 46 Eversion 17 Left Active Dorsiflexion with Knee Flexed 10 Dorsiflexion with Knee Extended 0 Plantarflexion 50 Inversion 41 Eversion 18 Ankle and Foot ROM Limitations Comments pain with inversion PT-OP-L Special Tests Start: 07/04/19 10:26 Freq: Status: Active Protocol: Document 07/04/19 10:26 [facility] (Rec: 07/04/19 12:26 [facility] [id number]) Special Tests Foot/Ankle Special Tests Talor Tilt Test Results neg Anterior Draw Test Results neg PT-OP-M Strength Start: 07/04/19 10:26 Freq: Status: Active Protocol: Document 07/04/19 10:26 [facility] (Rec: 07/04/19 12:26 [facility] [id number]) Hip Strength Hip Manual Muscle Testing Right Flexion (L2) 4+ Good+ Extension (S1) 4 Good Abduction 4 Good External Rotation 4- Good- Internal Rotation 4- Good- Left Flexion (L2) 4 Good Extension (S1) 3+ Fair+ Abduction 4- Good- External Rotation 3+ Fair+ Internal Rotation 3+ Fair+ Knee Strength Knee Manual Muscle Testing Right Flexion (S2) 5 Normal Extension (L3) 5 Normal Left Flexion (S2) 4 Good Extension (L3) 4 Good Comments pain with flex Ankle/Foot Strength Ankle and Foot Manual Muscle Testing Right Dorsiflexion (L4) 5 Normal Inversion 4+ Good+ Eversion (S1) 5 Normal Left Dorsiflexion (L4) 4 Good Plantarflexion (S1) 4+ Good+ Inversion 4 Good Eversion (S1) 4 Good PT-OP-T Assessment and Plan Start: 07/04/19 10:26 Freq: Status: Active Protocol: Document 10/18/19 08:31 [facility] (Rec: 10/18/19 08:32 [facility] [id number]) Physical Therapy Assessment Goals flexibility Halfway Goal (LTG) Pt will have full ROM B without inc pain to allow for improved gait mechanics and stability on uneven surfaces. LTG Duration 09/03/19 strenth Short Term Goal (STG) Pt will be indep with HEP STG Duration achieved Halfway Goal (LTG) Pt will have 5/5 BLE strength and 4/5 LPM to show improved stability and dec pain with upright activities. LTG Duration 09/03/19 walking Short Term Goal (STG) Pt will be able to hike without ankle feeling unstable STG Duration achieved Game Author Goal (LTG) Pt will be able to amb with good mechanics without pain with extended walking. LTG Duration achieved Assessment Summary Assessment Pt is no longer having issues with walking and ankle pain. She is indepw ith HEP and dc at this time. Physical Therapy Plan Discharge Physical Therapy Discharge Reasons Goals Met
== END 2019-10-19 08:09 ==
LOC: PHYS 16:00
PROVIDERS: PCP Nurse Practitioner; Referring Provider Nurse Practitioner; Visit Provider Nurse Practitioner
DX: M79.672 Pain in left foot (principal); M25.572 Pain in left ankle and joints of left foot; R26.2 Difficulty in walking, not elsewhere classified; R53.1 Weakness
CPT/HCPCS: 97110; 97112; 97116; 97140; 97161; 97535

== ENCOUNTER → 2019-10-29 09:33 | Outpatient (CLI) | payer OTHER, SELFPAY ==
[2019-10-29 10:39] LABS: Hemoglobin A1C% w Est Avg Glu 5.9 % (4.0-6.0)
[2019-10-29 11:03] LABS: Alanine Aminotransferase 30 IU/L (<35); Albumin 4.5 g/dL (3.5-5.0); Albumin Globulin Ratio 1.3 (1.0-2.8); Alkaline Phosphatase 55 U/L (38-126); Aspartate Aminotransferase 23 IU/L (14-36); Bilirubin Total 0.4 mg/dL (0.2-1.3); Blood Urea Nitrogen 12 mg/dL (7-17); Calcium 9.2 mg/dL (8.4-10.2); Carbon Dioxide 26 mmol/L (22-32); Chloride 102 mmol/L (98-107); Cholesterol 134 mg/dL (140-199); Estimated Glomerular Filt Rate > 60.0 mL/min (>60); Globulin 3.6 g/dL (1.7-4.1); Glucose 92 mg/dL (70-100); HDL Cholesterol 41 mg/dL (40-60); HEMOLYSIS < 15 (0-50); LDL Cholesterol Calculated 78 mg/dL (<100); Potassium 4.2 mmol/L (3.4-5.1); Sodium 138 mmol/L (137-145); Total Protein 8.1 g/dL (6.3-8.2); Triglycerides 73 mg/dL (35-150)
== END ==
PROVIDERS: PCP Nurse Practitioner; Referring Provider Nurse Practitioner; Visit Provider Nurse Practitioner
DX: E66.01 Morbid (severe) obesity due to excess calories (principal); E78.2 Mixed hyperlipidemia; Z68.42 Body mass index [BMI] 45.0-49.9, adult
CPT/HCPCS: 36415; 80053; 80061; 83036

== ENCOUNTER → 2019-11-02 07:02 | Outpatient (CLI) | payer OTHER, SELFPAY ==
--- NOTE | 2019-11-02 07:03 | DI.US.S_ITS ---
PROCEDURE: US PELVIC COMPLETE INDICATIONS: POSSIBLE PCOS; POSSIBLE MASS AT CERVIX TECHNIQUE: Real-time scanning was performed of the pelvic organs, with image documentation. Additional endovaginal scanning was necessary due to incomplete visualization of the adnexal and endometrial structures by transabdominal scanning. COMPARISON: None. FINDINGS: Transabdominal scanning: Limited scanning through the kidneys shows no hydronephrosis. No pathologic free abdominal or pelvic fluid. Endovaginal scanning: Uterus: Uterus is normal in size at 7.8 x 3.8 x 5.2 cm. The endometrium measures 13 mm in combined thickness. A tiny nabothian cyst can be seen. Ovaries: The right ovary measures 3 x 2.2 x 3 cm. Within the right ovary, there is a cystic solid lesion seen that measures 17 x 13 x 18 mm. The left ovary measures 2.8 x 1.6 x 1.2 cm and demonstrates an unremarkable sonographic appearance. Normal appearing arterial flow is confirmed each ovary. The number and appearance of the ovarian follicles is within normal limits. Adjacent to the right ovary, there is a 2 cm simple cyst, which does not appear connected to the right ovary. IMPRESSION: A tiny nabothian cyst seen, without additional cervical abnormality seen. A 2 cm right adnexal cyst is seen, which does not appear connected to the right ovary. A cystic and solid lesion is seen within the left ovary, which is likely related to a resolving hemorrhagic cyst in a patient of this age. At clinical discretion, a followup pelvic ultrasound is suggested in 6 weeks to assure resolution/ improvement. Dictated by: Arnaldo Ty M.D. on 11/02/2019 at 9:51 Approved by: Arnaldo Ty M.D. on 11/02/2019 at 9:55
== END ==
PROVIDERS: PCP Nurse Practitioner; Referring Provider Nurse Practitioner; Visit Provider Nurse Practitioner
DX: N88.8 Other specified noninflammatory disorders of cervix uteri (principal); N83.291 Other ovarian cyst, right side; N94.89 Other specified conditions associated with female genital organs and menstrual cycle
CPT/HCPCS: 76830; 76856

== ENCOUNTER → 2019-11-21 08:46 | Outpatient (CLI) | payer OTHER, SELFPAY ==
[2019-11-21 17:13] LABS: Follicle Stimulating Hormone 4.82 mIU/mL
== END ==
PROVIDERS: PCP Nurse Practitioner; Referring Provider Obstetrics & Gynecology; Visit Provider Obstetrics & Gynecology
DX: N92.6 Irregular menstruation, unspecified (principal)
CPT/HCPCS: 36415; 83001; 83002

== ENCOUNTER → 2019-12-14 07:29 | Outpatient (CLI) | payer OTHER, SELFPAY ==
--- NOTE | 2019-12-14 07:30 | DI.US.S_ITS ---
PROCEDURE: US PELVIC COMPLETE INDICATIONS: 6 WEEK FOLLOW UP TECHNIQUE: Real-time scanning was performed of the pelvic organs, with image documentation. Additional endovaginal scanning was necessary due to incomplete visualization of the adnexal and endometrial structures by transabdominal scanning. COMPARISON: [facility], , PELVIC COMPLETE, 11/02/2019, 7:17. FINDINGS: Transabdominal scanning: Limited scanning through the kidneys shows trace pelvicaliectasis on the right. No pathologic free abdominal or pelvic fluid. Endovaginal scanning: Uterus: Uterus is normal in size at 7.6 x 5.1 x 3.3 cm. The endometrium measures 4-5 mm in combined thickness. Incidental note is made of nabothian cysts. Ovaries: The right ovary measures 4.7 x 1.6 x 2.2 cm. A right adnexal cyst is seen, with minimal, potential internal debris that measures 1.5 x 1.7 x 2 cm, which previously measured 1.9 x 2 x 1.7 cm. The left ovary measures 3.9 x 1.7 x 1.5 cm and demonstrates an unremarkable sonographic appearance. IMPRESSION: Improved right adnexal cyst, which is smaller and demonstrates a more simple appearance on the current study than on the prior. No specific imaging follow-up is recommended. Dictated by: Arnaldo Ty M.D. on 12/14/2019 at 8:20 Approved by: Arnaldo Ty M.D. on 12/14/2019 at 8:24
== END ==
PROVIDERS: PCP Nurse Practitioner; Referring Provider Nurse Practitioner; Visit Provider Nurse Practitioner
DX: N83.201 Unspecified ovarian cyst, right side; R93.89 Abnormal findings on diagnostic imaging of other specified body structures; N88.8 Other specified noninflammatory disorders of cervix uteri
CPT/HCPCS: 76856

== ENCOUNTER → 2019-12-18 | Outpatient (CLI) | payer OTHER, SELFPAY | PROVIDERS: PCP Nurse Practitioner; Referring Provider Internal Medicine; Visit Provider Internal Medicine | DX: Z23 Encounter for immunization (principal) | CPT/HCPCS: 90471; 90686 ==

== ENCOUNTER → 2020-01-26 10:39 | Outpatient (CLI) | payer OTHER, SELFPAY ==
[2020-01-26 12:05] LABS: Hemoglobin A1C% w Est Avg Glu 5.8 % (4.0-6.0)
[2020-01-26 12:15] LABS: Alanine Aminotransferase 26 IU/L (<35); Albumin 4.5 g/dL (3.5-5.0); Albumin Globulin Ratio 1.2 (1.0-2.8); Alkaline Phosphatase 49 U/L (38-126); Aspartate Aminotransferase 25 IU/L (14-36); Bilirubin Total 0.5 mg/dL (0.2-1.3); Blood Urea Nitrogen 10 mg/dL (7-17); Calcium 9.6 mg/dL (8.4-10.2); Carbon Dioxide 29 mmol/L (22-32); Chloride 103 mmol/L (98-107); Cholesterol 154 mg/dL (140-199); Estimated Glomerular Filt Rate > 60.0 mL/min (>60); Globulin 3.9 g/dL (1.7-4.1); Glucose 94 mg/dL (70-100); HDL Cholesterol 40 mg/dL (40-60); HEMOLYSIS < 15 (0-50); LDL Cholesterol Calculated 99 mg/dL (<100); Potassium 3.9 mmol/L (3.4-5.1); Sodium 139 mmol/L (137-145); Total Protein 8.4 g/dL (6.3-8.2); Triglycerides 76 mg/dL (35-150)
[2020-01-26 12:23] LABS: Creatinine Urine Random 152.7 mg/dL
[2020-01-26 12:28] LABS: Microalbumi Creatinin Ratio Ur 60.2 ug/mg CR (<30); Microalbumin Urine Random 9.2 mg/dL (0-1.6)
[2020-01-26 12:29] LABS: Free T3, Triiodothyronine Free 3.99 pg/mL (2.77-5.27); Free T4, Direct Thyroxine 0.97 ng/dL (0.78-2.19)
[2020-01-26 12:42] LABS: Thyroid Stimulating Hormone 1.68 uIU/mL (0.47-4.68)
== END ==
PROVIDERS: PCP Nurse Practitioner; Referring Provider Nurse Practitioner; Visit Provider Nurse Practitioner
DX: E78.2 Mixed hyperlipidemia (principal); R03.0 Elevated blood-pressure reading, without diagnosis of hypertension; E66.9 Obesity, unspecified
CPT/HCPCS: 36415; 80053; 80061; 82043; 82570; 83036; 84439; 84443; 84481

== ENCOUNTER → 2020-04-25 10:13 | Outpatient (CLI) | payer OTHER, SELFPAY ==
[2020-04-25 11:19] LABS: Hemoglobin A1C% w Est Avg Glu 5.7 % (4.0-6.0)
[2020-04-25 11:56] LABS: Glucose 89 mg/dL (70-100)
== END ==
PROVIDERS: PCP Nurse Practitioner; Referring Provider Nurse Practitioner; Visit Provider Nurse Practitioner
DX: E78.2 Mixed hyperlipidemia (principal)
CPT/HCPCS: 36415; 82947; 83036

== ENCOUNTER → 2020-05-05 14:23 | Outpatient (CLI) | payer OTHER, SELFPAY | PROVIDERS: PCP Nurse Practitioner; Visit Provider Physician Assistant | DX: J02.9 Acute pharyngitis, unspecified (principal) | CPT/HCPCS: 87070 ==

== ENCOUNTER → 2020-10-11 11:45 | Outpatient (CLI) | payer OTHER, SELFPAY ==
[2020-10-11 13:04] LABS: Alanine Aminotransferase 148 IU/L (<35); Albumin 4.5 g/dL (3.5-5.0); Albumin Globulin Ratio 1.3 (1.0-2.8); Alkaline Phosphatase 53 U/L (38-126); Aspartate Aminotransferase 99 IU/L (14-36); BUN Creatinine Ratio 22.7 (6-22); Bilirubin Total 0.5 mg/dL (0.2-1.3); Blood Urea Nitrogen 10 mg/dL (7-17); Calcium 10.2 mg/dL (8.4-10.2); Carbon Dioxide 23 mmol/L (22-32); Chloride 103 mmol/L (98-107); Cholesterol 186 mg/dL (140-199); Estimated Glomerular Filt Rate > 60.0 mL/min (>60); Globulin 3.4 g/dL (1.7-4.1); Glucose 113 mg/dL (70-100); HDL Cholesterol 64 mg/dL (40-60); HEMOLYSIS < 15 (0-50); LDL Cholesterol Calculated 98 mg/dL (<100); Potassium 4.5 mmol/L (3.4-5.1); Sodium 138 mmol/L (137-145); Total Protein 7.9 g/dL (6.3-8.2); Triglycerides 118 mg/dL (35-150)
[2020-10-11 13:05] LABS: Hemoglobin A1C% w Est Avg Glu 6.4 % (4.0-6.0)
[2020-10-11 15:27] LABS: Creatinine Urine Random 245.5 mg/dL
[2020-10-11 15:31] LABS: Microalbumi Creatinin Ratio Ur 19.5 ug/mg CR (<30); Microalbumin Urine Random 4.8 mg/dL (0-1.6)
== END ==
PROVIDERS: PCP Nurse Practitioner; Referring Provider Nurse Practitioner; Visit Provider Nurse Practitioner
DX: I10 Essential (primary) hypertension (principal); E78.2 Mixed hyperlipidemia; Z79.899 Other long term (current) drug therapy
CPT/HCPCS: 36415; 80053; 80061; 82043; 82570; 83036

== ENCOUNTER → 2020-11-12 09:13 | Outpatient (CLI) | payer OTHER, SELFPAY ==
[2020-11-12 14:44] LABS: COVID19 -Nasal RAPID POSITIVE (Negative)
== END ==
PROVIDERS: PCP Nurse Practitioner; Visit Provider Physician Assistant
DX: U07.1 COVID-19 (principal)
CPT/HCPCS: 87635

== ENCOUNTER → 2021-02-21 10:43 | Outpatient (CLI) | payer OTHER, SELFPAY ==
[2021-02-21 11:52] LABS: Hematocrit 40.4 % (36-46); Hemoglobin 13.1 g/dL (12.0-16.0); Mean Corpuscular HGB Conc 32.5 % (30-36); Mean Corpuscular Hemoglobin 25.1 PG (26-34); Mean Corpuscular Volume 77.1 fL (80-100); Platelet Count 353 X10^3/uL (150-400); Red Blood Cell Count 5.24 X10^6/uL (4.0-5.2); Red Cell Distribution Width 14.2 % (11.6-14.8); White Blood Cell Count 11.4 X10^3/uL (4.5-11.0)
[2021-02-21 11:59] LABS: Hemoglobin A1C% w Est Avg Glu 7.5 % (4.0-6.0)
[2021-02-21 12:37] LABS: Free T4, Direct Thyroxine 0.98 ng/dL (0.78-2.19)
[2021-02-21 12:51] LABS: Thyroid Stimulating Hormone 1.48 uIU/mL (0.47-4.68)
[2021-02-21 13:05] LABS: Alanine Aminotransferase 181 IU/L (<35); Albumin 4.6 g/dL (3.5-5.0); Albumin Globulin Ratio 1.2 (1.0-2.8); Alkaline Phosphatase 48 U/L (38-126); Aspartate Aminotransferase 99 IU/L (14-36); BUN Creatinine Ratio 22.4 (6-22); Bilirubin Total 0.5 mg/dL (0.2-1.3); Blood Urea Nitrogen 11 mg/dL (7-17); Calcium 10.2 mg/dL (8.4-10.2); Carbon Dioxide 30 mmol/L (22-32); Chloride 103 mmol/L (98-107); Cholesterol 205 mg/dL (140-199); Creatinine Urine Random 182.1 mg/dL; Estimated Glomerular Filt Rate > 60.0 mL/min (>60); Globulin 3.7 g/dL (1.7-4.1); Glucose 127 mg/dL (70-100); HDL Cholesterol 63 mg/dL (40-60); HEMOLYSIS 15 (0-50); LDL Cholesterol Calculated 120 mg/dL (<100); Potassium 4.4 mmol/L (3.4-5.1); Sodium 136 mmol/L (137-145); Total Protein 8.3 g/dL (6.3-8.2); Triglycerides 111 mg/dL (35-150)
[2021-02-21 13:11] LABS: Microalbumi Creatinin Ratio Ur 7.1 ug/mg CR (<30); Microalbumin Urine Random 1.3 mg/dL (0-1.6)
== END ==
PROVIDERS: PCP Nurse Practitioner; Referring Provider Nurse Practitioner; Visit Provider Nurse Practitioner
DX: Z00.00 Encounter for general adult medical examination without abnormal findings (principal); I10 Essential (primary) hypertension; E78.2 Mixed hyperlipidemia; Z79.899 Other long term (current) drug therapy
CPT/HCPCS: 36415; 80053; 80061; 82043; 82570; 83036; 84439; 84443; 84481; 85027

== ENCOUNTER → 2021-05-20 07:59 | Outpatient (CLI) | payer OTHER, SELFPAY ==
--- NOTE | 2021-05-20 08:01 | DI.US.S_ITS ---
PROCEDURE: US ABDOMEN COMPLETE INDICATIONS: INFLAMMATORY LIVER DISEASE TECHNIQUE: Real-time scanning was performed of the abdominal and retroperitoneal organs, with image documentation. COMPARISON: None. FINDINGS: Liver: The liver demonstrates enlarged size. The liver demonstrates generalized moderately increased echogenicity. This decreases ultrasound sensitivity for detection of hepatic masses. Gallbladder: No findings of gallstones or sludge are seen. The gallbladder wall is not thickened, measuring 3 mm or less. No specific pericholecystic fluid is seen. The sonographic Byrd sign is negative. Biliary ducts: Intrahepatic bile ducts are non-dilated. Extrahepatic bile duct caliber measures 5 mm. Normal is 6-7 mm or less in diameter, or 10 mm or less post-cholecystectomy. Pancreas: Visualized portions of the pancreas are sonographically normal. Spleen: Spleen is normal in size and homogeneous in echotexture. Kidneys: Kidneys are normal in size and echotexture. Right kidney measures 12.9 cm long; left kidney measures 12.2 cm long. No hydronephrosis or nephrolithiasis. No solid masses. Aorta: Visualized aorta is normal in caliber at less than 3 cm. Iliacs: Proximal common iliac arteries are normal in caliber at less than 2.5 cm. IVC: Intrahepatic inferior vena cava is patent. Miscellaneous: No free abdominal fluid. IMPRESSION: Enlarged, fatty liver. Dictated by: Arnaldo Ty M.D. on 05/20/2021 at 9:06 Approved by: Arnaldo Ty M.D. on 05/20/2021 at 9:08
[2021-05-20 08:56] LABS: Hemoglobin A1C% w Est Avg Glu 7.6 % (4.0-6.0)
[2021-05-20 09:05] LABS: Alanine Aminotransferase 120 IU/L (<35); Albumin 4.6 g/dL (3.5-5.0); Albumin Globulin Ratio 1.3 (1.0-2.8); Alkaline Phosphatase 52 U/L (38-126); Aspartate Aminotransferase 70 IU/L (14-36); BUN Creatinine Ratio 21.6 (6-22); Bilirubin Total 0.5 mg/dL (0.2-1.3); Blood Urea Nitrogen 11 mg/dL (7-17); Calcium 9.7 mg/dL (8.4-10.2); Carbon Dioxide 25 mmol/L (22-32); Chloride 101 mmol/L (98-107); Cholesterol 180 mg/dL (140-199); Estimated Glomerular Filt Rate > 60.0 mL/min (>60); Globulin 3.5 g/dL (1.7-4.1); Glucose 154 mg/dL (70-100); HDL Cholesterol 60 mg/dL (40-60); HEMOLYSIS < 15 (0-50); LDL Cholesterol Calculated 100 mg/dL (<100); Potassium 4.4 mmol/L (3.4-5.1); Sodium 137 mmol/L (137-145); Total Protein 8.1 g/dL (6.3-8.2); Triglycerides 100 mg/dL (35-150)
[2021-05-20 09:51] LABS: Hep C Virus Ab w/Reflex Quant NEGATIVE s/c (NEGATIVE)
== END ==
PROVIDERS: PCP Nurse Practitioner; Referring Provider Nurse Practitioner; Visit Provider Nurse Practitioner
DX: K75.9 Inflammatory liver disease, unspecified (principal); K76.0 Fatty (change of) liver, not elsewhere classified; E11.9 Type 2 diabetes mellitus without complications; E78.2 Mixed hyperlipidemia; I10 Essential (primary) hypertension; R79.89 Other specified abnormal findings of blood chemistry; Z79.899 Other long term (current) drug therapy
CPT/HCPCS: 36415; 76700; 80053; 80061; 83036; 86803

== ENCOUNTER → 2021-08-11 08:29 | Outpatient (CLI) | payer OTHER, SELFPAY ==
[2021-08-11 10:48] LABS: Thyroid Stimulating Hormone 3.23 uIU/mL (0.47-4.68)
[2021-08-11 13:05] LABS: HEMOLYSIS < 15 (0-50); Total Iron Binding Capacity 331 ug/dL (265-497); Transferrin 253 mg/dL (206-381)
[2021-08-11 13:35] LABS: Iron 55 ug/dL (37-170); Percent Iron Saturation 17 % (15-50)
[2021-08-12 05:02] LABS: Hepatitis B Core AB w/Reflex Negative (Negative); Hepatitis B Surf AB Quant 53.4 mIU/mL (Immunity>9.9)
[2021-08-12 05:11] LABS: Alpha 1 Anti Trypsin 151 mg/dL (100-188); Ceruloplasmin 29.5 mg/dL (19.0-39.0); Immunoglobulin A 402 mg/dL (87-352)
[2021-08-12 17:19] LABS: Tissue Transglutaminase IgA <2 U/mL (0-3); Tissue Transglutaminase IgG <2 U/mL (0-5)
[2021-08-13 13:10] LABS: ANA Screen, IFA Negative (.)
[2021-08-13 14:42] LABS: Smooth Muscle Antibody 7 Units (0-19)
== END ==
PROVIDERS: PCP Nurse Practitioner; Referring Provider Internal Medicine Gastroenterology; Visit Provider Internal Medicine Gastroenterology
DX: R79.89 Other specified abnormal findings of blood chemistry (principal); K76.0 Fatty (change of) liver, not elsewhere classified
CPT/HCPCS: 36415; 82103; 82390; 82784; 83516; 83540; 83550; 84443; 86038; 86376; 86704; 86706

== ENCOUNTER → 2021-08-22 09:14 | Outpatient (CLI) | payer OTHER, SELFPAY ==
[2021-08-22 11:11] LABS: Hemoglobin A1C% w Est Avg Glu 7.6 % (4.0-6.0)
[2021-08-22 12:04] LABS: Alanine Aminotransferase 143 IU/L (<35); Albumin 4.5 g/dL (3.5-5.0); Albumin Globulin Ratio 1.3 (1.0-2.8); Alkaline Phosphatase 45 U/L (38-126); Aspartate Aminotransferase 65 IU/L (14-36); BUN Creatinine Ratio 21.6 (6-22); Bilirubin Total 0.5 mg/dL (0.2-1.3); Blood Urea Nitrogen 11 mg/dL (7-17); Calcium 9.3 mg/dL (8.4-10.2); Carbon Dioxide 24 mmol/L (22-32); Chloride 104 mmol/L (98-107); Estimated Glomerular Filt Rate > 60 mL/min (>60); Globulin 3.4 g/dL (1.7-4.1); Glucose 96 mg/dL (70-100); HEMOLYSIS < 15 (0-50); Sodium 139 mmol/L (137-145); Total Protein 7.9 g/dL (6.3-8.2)
[2021-08-22 13:57] LABS: Creatinine Urine Random 106.5 mg/dL
[2021-08-22 14:02] LABS: Microalbumi Creatinin Ratio Ur 6.5 ug/mg CR (<30); Microalbumin Urine Random 0.7 mg/dL (0-1.6)
== END ==
PROVIDERS: PCP Nurse Practitioner; Referring Provider Nurse Practitioner; Visit Provider Nurse Practitioner
DX: E78.2 Mixed hyperlipidemia (principal); I10 Essential (primary) hypertension; K76.0 Fatty (change of) liver, not elsewhere classified; R79.89 Other specified abnormal findings of blood chemistry
CPT/HCPCS: 36415; 80053; 82043; 82570; 83036

== ENCOUNTER → 2021-11-07 09:36 | Outpatient (CLI) | payer OTHER, SELFPAY ==
[2021-11-07 12:22] LABS: Add Manual Diff / Slide Review NO; Basophils Absolute Auto 100 /uL (0-100); Basophils Percent Auto 0.6 % (0-2); Eosinophils Absolute Auto 400 /uL (0-450); Eosinophils Percent Auto 2.9 % (2-4); Hematocrit 37.6 % (36-46); Hemoglobin 12.5 g/dL (12.0-16.0); Lymphocytes Absolute Auto 3500 /uL (1100-4500); Lymphocytes Percent Auto 28.5 % (25-40); Mean Corpuscular HGB Conc 33.2 % (30-36); Mean Corpuscular Hemoglobin 25.1 PG (26-34); Mean Corpuscular Volume 75.6 fL (80-100); Monocytes Absolute Auto 700 /uL (0-900); Monocytes Percent Auto 5.4 % (3-14); Neutrophils Absolute Auto 7600 /uL (1500-7000); Neutrophils Percent Auto 62.6 % (50-75); Platelet Count 347 X10^3/uL (150-400); Red Blood Cell Count 4.98 X10^6/uL (4.0-5.2); Red Cell Distribution Width 15.2 % (11.6-14.8); White Blood Cell Count 12.2 X10^3/uL (4.5-11.0)
[2021-11-07 12:35] LABS: Alanine Aminotransferase 90 IU/L (<35); Albumin 4.2 g/dL (3.5-5.0); Albumin Globulin Ratio 1.2 (1.0-2.8); Alkaline Phosphatase 53 U/L (38-126); Aspartate Aminotransferase 48 IU/L (14-36); Bilirubin Total 0.5 mg/dL (0.2-1.3); Blood Urea Nitrogen 8 mg/dL (7-17); Calcium 9.3 mg/dL (8.4-10.2); Carbon Dioxide 25 mmol/L (22-32); Chloride 100 mmol/L (98-107); Cholesterol 148 mg/dL (140-199); Estimated Glomerular Filt Rate > 60 mL/min (>60); Globulin 3.5 g/dL (1.7-4.1); Glucose 116 mg/dL (70-100); HDL Cholesterol 51 mg/dL (40-60); HEMOLYSIS < 15 (0-50); LDL Cholesterol Calculated 81 mg/dL (<100); Potassium 4.5 mmol/L (3.4-5.1); Sodium 138 mmol/L (137-145); Total Protein 7.7 g/dL (6.3-8.2); Triglycerides 81 mg/dL (35-150)
[2021-11-07 12:51] LABS: Free T3, Triiodothyronine Free 4.41 pg/mL (2.77-5.27); Free T4, Direct Thyroxine 1.17 ng/dL (0.78-2.19)
[2021-11-07 13:05] LABS: Thyroid Stimulating Hormone 2.27 uIU/mL (0.47-4.68)
== END ==
PROVIDERS: PCP Nurse Practitioner; Referring Provider Nurse Practitioner; Visit Provider Nurse Practitioner
DX: E66.9 Obesity, unspecified (principal); E78.2 Mixed hyperlipidemia; I10 Essential (primary) hypertension; K76.0 Fatty (change of) liver, not elsewhere classified; R71.8 Other abnormality of red blood cells; R79.89 Other specified abnormal findings of blood chemistry; Z79.899 Other long term (current) drug therapy
CPT/HCPCS: 36415; 80053; 80061; 83036; 84439; 84443; 84481; 85025

== ENCOUNTER 2021-12-08 11:07 | Observation (INO) | payer OTHER, SELFPAY ==
[2021-12-08] VITALS (22 sets, daily range): BP systolic 103–160; BP diastolic 62–98; PULSE 92–113; RESP 14–22; TEMP 35.8–37.4; O2SAT 93–100; BMI 44.2
--- NOTE | 2021-12-08 | PATH_ITS ---
[facility] Accession Number: [id number] . 01 Material submitted: . body - ECTOPIC AND RIGHT FALLOPIAN TUBE . 01 Diagnosis: Ectopic in Right Fallopian Tube, Salpingectomy: Chorionic villi and blood clots within lumen of fallopian tube, consistent with ectopic . MRV 12/11/2021 0954 Local . 01 Electronically signed: . Shana Mcenil MD, Pathologist NPI- [id number] . 01 Gross description: . The specimen is received in formalin labeled with the patient's name and ectopic and right fallopian tube, and consists of a fimbriated fallopian tube measuring 7.3 x 1.9 cm with congested smooth serosa with no cystic structures identified. The serosa appears to be intact and is grossly dilated. Sectioning reveals a dilated lumen measuring up to 1.2 cm in greatest diameter filled with red-brown solid material. Also included within the container are multiple fragments of red-brown material consistent with hemorrhage aggregating to 5.8 x 5.3 x 1.5 cm No tissue is identified. Shaving Machine Operator sections are submitted as follows: . A1-A2: One-half of bisected fimbriae and service representative cross-sections of fallopian tube. A3: Shaving Machine Operator additional hemorrhagic material. ([id number]) /MRV 12/10/20212 Local . 01 Pathologist provided ICD-10: O00.90 . 01 CPT . 973352 Specimen Comment: A courtesy copy of this report has been sent to [phone] Performed at: 01 [facility] [address] [place] [address] [address] [facility], [place], [place] [id number] MD Toan Marie MD Phone: [phone]
--- NOTE | 2021-12-08 11:20 | DI.US.S_ITS ---
PROCEDURE: US OB <= 14 WEEKS FETUS INDICATIONS: VAG BLEEDING, + PREG TEST, INCREASED CRAMPING TECHNIQUE: Real-time scanning was performed of the fetus and maternal pelvic organs, with image documentation. Endovaginal scanning was also performed to better visualize the fetus and maternal ovaries. COMPARISON: None. FINDINGS: There is no gestational sac or fetus within the uterine cavity. There is mild endometrial thickening measuring up to 1 centimeter double-layer thickness. No uterine mass. In the right adnexa there is a 3.5 x 1.7 x 1.7 centimeter hypoechoic mass with adjacent complex fluid in the right adnexa. This cyst demonstrates a few areas of minimal focal Doppler signal in the wall. Another simple appearing cyst is present in the right ovary measuring 3.2 x 1.3 x 3.0 centimeters. No ovarian or adnexal mass on the left. Large volume complex fluid in the anterior cul-de-sac. IMPRESSION: Complex hypoechoic predominantly cystic mass in the right adnexa measuring 3.5 x 1.7 x 1.7 centimeters with few small focal areas of Doppler signal in the cyst wall. This is mildly suspicious for ectopic . No definitive evidence that this represents ectopic pregnancies such as a fetus , yolk sac, or other definite gestational tissue. Large volume complex fluid in the anterior cul-de-sac is potentially related to ectopic or ruptured ectopic. No evidence of intrauterine . Early sonographically occult cannot be strictly excluded. Close clinical and imaging follow-up is recommended along with serial hCG trending to differentiate completed , early sonographically occult , and possible ectopic . Dictated by: Poncho Rosario M.D. on 12/08/2021 at 12:50 Approved by: Poncho Rosario M.D. on 12/08/2021 at 13:01
[2021-12-08 12:04] LABS: Add Manual Diff / Slide Review NO; Alanine Aminotransferase 69 IU/L (<35); Albumin 4.3 g/dL (3.5-5.0); Albumin Globulin Ratio 1.2 (1.0-2.8); Alkaline Phosphatase 52 U/L (38-126); Aspartate Aminotransferase 34 IU/L (14-36); BUN Creatinine Ratio 19.6 (6-22); Basophils Absolute Auto 100 /uL (0-100); Basophils Percent Auto 0.5 % (0-2); Bilirubin Total 0.3 mg/dL (0.2-1.3); Blood Urea Nitrogen 9 mg/dL (7-17); Calcium 8.9 mg/dL (8.4-10.2); Carbon Dioxide 25 mmol/L (22-32); Chloride 101 mmol/L (98-107); Eosinophils Absolute Auto 400 /uL (0-450); Eosinophils Percent Auto 2.6 % (2-4); Estimated Glomerular Filt Rate > 60 mL/min (>60); Globulin 3.7 g/dL (1.7-4.1); Glucose 112 mg/dL (70-100); HEMOLYSIS < 15 (0-50); Hematocrit 35.7 % (36-46); Hemoglobin 11.8 g/dL (12.0-16.0); Lymphocytes Absolute Auto 4100 /uL (1100-4500); Mean Corpuscular HGB Conc 32.9 % (30-36); Mean Corpuscular Hemoglobin 25.1 PG (26-34); Mean Corpuscular Volume 76.1 fL (80-100); Monocytes Absolute Auto 700 /uL (0-900); Monocytes Percent Auto 4.8 % (3-14); Neutrophils Absolute Auto 9000 /uL (1500-7000); Neutrophils Percent Auto 63.1 % (50-75); Platelet Count 337 X10^3/uL (150-400); Potassium 3.8 mmol/L (3.4-5.1); Red Blood Cell Count 4.69 X10^6/uL (4.0-5.2); Red Cell Distribution Width 15.3 % (11.6-14.8); Sodium 138 mmol/L (137-145); White Blood Cell Count 14.3 X10^3/uL (4.5-11.0)
[2021-12-08 12:06] LABS: Lipase 47 U/L (23-300)
[2021-12-08 12:21] LABS: HCG Quantitative /Beta subunit 740.6 mIU/mL
--- NOTE | 2021-12-08 12:41 | ED.PREGNANCY ---
HPI - General Chief complaint: Urogenital-Female Stated complaint: Miscarriage sent by DR Ferrell Seen by Provider: 12/08/21 11:19 Source: patient Mode of arrival: Ambulatory Limitations: no limitations History of Present Illness HPI Narrative: This is a 26-year-old female with hypertension, diabetes type 2 and dyslipidemia who is a proximally 6-7 weeks by dates. Patient started having some spotting in October which has persisted and then had some large clots several days ago, patient has had some lower left pelvic cramping. Patient states pain is mild currently. No other symptoms. Patient denies other symptoms. No urinary symptoms, no GI symptoms, no nausea or vomiting. Related Data Home Medications Medication Instructions Recorded Confirmed metformin 1,000 mg tablet See Rx Instructions .Route .COMPLEX 12/08/21 12/08/21 Previous Rx's Medication Instructions Recorded blood-glucose meter #1 ea 07/16/19 lancets #200 ea 07/16/19 atorvastatin 10 mg tablet 10 mg PO BEDTIME #30 tabs 02/24/21 lisinopril 2.5 mg tablet 2.5 mg PO DAILY #30 tabs 02/24/21 metformin 1,000 mg tablet 1,000 mg PO BID #60 tabs 02/24/21 Blood Pressure Monitor #1 ea 05/27/21 blood sugar diagnostic (Blood #200 ea 08/06/21 Glucose Test strips) spironolactone 25 mg tablet 25 mg PO DAILY #90 tabs 10/23/21 oxycodone 5 mg tablet 5 mg PO Q4H PRN pain #20 tabs 12/08/21 Allergies Allergy/AdvReac Type Severity Reaction Status Date / Time No Known Drug Allergies Allergy Verified 02/24/21 14:56 Review of Systems Review of Systems ROS Unobtainable: All systems reviewed & are unremarkable except as noted in HPI and below Exam Narrative Exam Narrative: GENERAL: Alert and oriented x three, female in mild distress HEENT: Head normocephalic, atraumatic, EOMI, pupils reactive, face symmetric, moist mucous membranes NECK: Supple, full range of motion CARDIOVASCULAR: Regular rate and rhythm without murmurs, rubs or gallops. RESPIRATORY: Breath sounds equal bilaterally, no wheezes rales or rhonchi. ABDOMEN: Soft, nontender. Normoactive bowel sounds all 4 quadrants. No guarding or rebound, rigidity, no mass : No CVA tenderness EXTREMITIES: Normal range of motion, no clubbing or edema. Neurovascularly intact NEUROLOGICAL: Cranial nerves II through XII grossly intact. Moving all extremities SKIN: Warm, dry, no petechiae, no rashes or lesions. Initial Vital Signs Initial Vital Signs: Vital Signs Temperature 98.3 F 12/08/21 11:17 Pulse Rate 96 H 12/08/21 11:17 Respiratory Rate 18 12/08/21 11:17 Blood Pressure 160/98 H 12/08/21 11:17 Pulse Oximetry 99 12/08/21 11:17 Oxygen Delivery Method 12/08/21 11:17 Course Orders Ordered: ED Orders 12/08/21 11:20 US OB <= 14 weeks fetus Stat 12/08/21 11:44 ABO RH Type Stat CBC Auto Diff [Complete Blood Count AUTO DIFF] Stat CMP [Comprehensive Metabolic Panel] Stat HCG Quantitative /Beta subunit Stat Lipase Stat 12/08/21 14:45 COVID19 -Nasal RAPID/Pre-Proc Stat Hydromorphone HCl (Hydromorphone 2 Mg Inj) 0 mg IV Q5M PRN PRN Reason: Pain, Moderate (4-6) Sodium Chloride (Normal Saline 0.9%) 1,000 mls @ 150 mls/hr IV CONT BEHZAD Lactated Ringer's (Lactated Ringers) 1,000 mls @ 42 mls/hr IV NOW ONE Stop: 12/09/21 16:53 Last Admin: 12/08/21 17:05 Dose: 42 mls/hr Documented By: NYASIA Lactated Ringer's (Lactated Ringers) 1,000 mls @ 120 mls/hr IV CONT BEHZAD Oxycodone/Acetaminophen (Oxycodone/Acetaminophen 5/325 Tablet) 1 tab PO PACUNOW PRN PRN Reason: Mild or Moderate Pain Oxycodone/Acetaminophen (Oxycodone/Acetaminophen 5/325 Tablet) 1 tab PO Q4HR PRN PRN Reason: Pain, Moderate (4-6) Discontinued Medications Bupivacaine HCl/Epinephrine Bitart (Bupivacaine 0.5% W/ Epi (Pf) 30 Ml Vial) 30 ml INJ NOW ONE Stop: 12/08/21 18:16 Last Admin: 12/08/21 18:15 Dose: 30 ml Documented By: JOSEPH Cefazolin Sodium/Dextrose (Ancef) 100 mls @ 200 mls/hr IV NOW ONE Stop: 12/08/21 17:28 Last Infusion: 12/08/21 17:52 Dose: 0 mls/hr Documented By: Admin: 12/08/21 17:40 Dose: 200 mls/hr Documented By: MARY Vital Signs Vital signs: Vital Signs - 8 hr 12/08/21 12:30 12/08/21 13:00 12/08/21 13:05 Pulse Rate 94 H 93 H 92 H Respiratory Rate Blood Pressure Pulse Oximetry 99 97 97 12/08/21 13:05 12/08/21 13:30 12/08/21 13:30 Pulse Rate 94 H Respiratory Rate Blood Pressure 123/69 128/75 Pulse Oximetry 97 12/08/21 14:00 12/08/21 14:00 12/08/21 14:30 Pulse Rate 99 H Respiratory Rate 20 Blood Pressure 127/67 128/71 Pulse Oximetry 97 12/08/21 14:30 12/08/21 15:00 12/08/21 15:00 Pulse Rate 96 H 106 H Respiratory Rate Blood Pressure 128/82 Pulse Oximetry 97 97 MDM - OB/Uterine Contractions Lab Data Result diagrams: 12/08/21 11:44 12/08/21 11:44 Labs: Lab Results 12/08/21 12/08/21 12/08/21 Range/Units 11:44 11:44 11:44 WBC 14.3 H (4.5-11.0) X10^3/uL RBC 4.69 (4.0-5.2) X10^6/uL Hgb 11.8 L (12.0-16.0) g/dL Hct 35.7 L (36-46) % MCV 76.1 L (80-100) fL MCH 25.1 L (26-34) PG MCHC 32.9 (30-36) % RDW 15.3 H (11.6-14.8) % Plt Count 337 (150-400) X10^3/uL Neut % (Auto) 63.1 (50-75) % Lymph % (Auto) 29.0 (25-40) % [place] % (Auto) 4.8 (3-14) % Eos % (Auto) 2.6 (2-4) % Baso % (Auto) 0.5 (0-2) % Neut # (Auto) 9000 H (0101-1433) /uL Lymph # (Auto) 4100 (9110-5810) /uL [place] # (Auto) 700 (0-900) /uL Eos # (Auto) 400 (0-450) /uL Baso # (Auto) 100 (0-100) /uL Sodium 138 (137-145) mmol/L Potassium 3.8 (3.4-5.1) mmol/L Chloride 101 (98-107) mmol/L Carbon Dioxide 25 (22-32) mmol/L BUN 9 (7-17) mg/dL Creatinine 0.46 L (0.52-1.04) mg/dL Estimated GFR > 60 (>60) mL/min BUN/Creatinine Ratio 19.6 (6-22) Glucose 112 H (70-100) mg/dL Calcium 8.9 (8.4-10.2) mg/dL Total Bilirubin 0.3 (0.2-1.3) mg/dL AST 34 (14-36) IU/L ALT 69 H (<35) IU/L Alkaline Phosphatase 52 (38-126) U/L Total Protein 8.0 (6.3-8.2) g/dL Albumin 4.3 (3.5-5.0) g/dL Globulin 3.7 (1.7-4.1) g/dL Albumin/Globulin Ratio 1.2 (1.0-2.8) Lipase (23-300) U/L HCG, Quant 740.6 mIU/mL SARS-CoV-2 (PCR) (Negative) Blood Type O Positive 12/08/21 12/08/21 Range/Units 11:44 14:45 WBC (4.5-11.0) X10^3/uL RBC (4.0-5.2) X10^6/uL Hgb (12.0-16.0) g/dL Hct (36-46) % MCV (80-100) fL MCH (26-34) PG MCHC (30-36) % RDW (11.6-14.8) % Plt Count (150-400) X10^3/uL Neut % (Auto) (50-75) % Lymph % (Auto) (25-40) % [place] % (Auto) (3-14) % Eos % (Auto) (2-4) % Baso % (Auto) (0-2) % Neut # (Auto) (0597-6575) /uL Lymph # (Auto) (9667-0606) /uL [place] # (Auto) (0-900) /uL Eos # (Auto) (0-450) /uL Baso # (Auto) (0-100) /uL Sodium (137-145) mmol/L Potassium (3.4-5.1) mmol/L Chloride (98-107) mmol/L Carbon Dioxide (22-32) mmol/L BUN (7-17) mg/dL Creatinine (0.52-1.04) mg/dL Estimated GFR (>60) mL/min BUN/Creatinine Ratio (6-22) Glucose (70-100) mg/dL Calcium (8.4-10.2) mg/dL Total Bilirubin (0.2-1.3) mg/dL AST (14-36) IU/L ALT (<35) IU/L Alkaline Phosphatase (38-126) U/L Total Protein (6.3-8.2) g/dL Albumin (3.5-5.0) g/dL Globulin (1.7-4.1) g/dL Albumin/Globulin Ratio (1.0-2.8) Lipase 47 (23-300) U/L HCG, Quant mIU/mL SARS-CoV-2 (PCR) Negative (Negative) Blood Type Point of Care Testing Test Results Positive Glucose POC 94 Urine Dip Bedside Urine Glucose Negative Bedside Urine Bilirubin - Negative Bedside Urine Ketone - Negative Urine Specific [place] 1.025 Bedside Urine Occult Blood +++ Bedside Urine pH 6.0 Bedside Urine Protein + 30 Bedside Urine Urobilinogen 0.2 Bedside Urine Nitrite - Negative Bedside Urine Leukocytes - Negative Esterase Imaging Data US - OB: Radiologist's Impression: Close Ultrasound (Signed) Poncho Rosario - 12/08/21 Abdomen Ultrasound (Signed) Arnaldo Ty - 05/20/21 Pelvis Ultrasound (Signed) Arnaldo Ty - 12/14/19 Pelvis Ultrasound (Signed) Arnaldo yT - 11/02/19 Breast Ultrasound (Signed) Darcy Dunn - 07/02/[address] [address] Ultrasound Report Signed Patient: Manzo,Brittany E MR#: [id number] : 1995 Acct:[id number] Age/Sex: 26 / F Date of Service: 12/08/21 Loc: ED Accession Number: [id number] ?? Procedure: US OB <= 14 weeks fetus Ordering Provider: Zenaida Rosario D.O. PROCEDURE:? US OB <= 14 WEEKS FETUS ? INDICATIONS:? VAG BLEEDING, + PREG TEST, INCREASED CRAMPING ? TECHNIQUE:? Real-time scanning was performed of the fetus and maternal pelvic organs, with image documentation.? Endovaginal scanning was also performed to better visualize the fetus and maternal ovaries.? ? COMPARISON:? None. ? FINDINGS:? ? There is no gestational sac or fetus within the uterine cavity.? There is mild endometrial thickening measuring up to 1 centimeter double-layer thickness.? No uterine mass. ? In the right adnexa there is a 3.5 x 1.7 x 1.7 centimeter hypoechoic mass with adjacent complex fluid in the right adnexa.? This cyst demonstrates a few areas of minimal focal Doppler signal in the wall.? Another simple appearing cyst is present in the right ovary measuring 3.2 x 1.3 x 3.0 centimeters.? No ovarian or adnexal mass on the left.? Large volume complex fluid in the anterior cul-de-sac. ? ? IMPRESSION: ? Complex hypoechoic predominantly cystic mass in the right adnexa measuring 3.5 x 1.7 x 1.7 centimeters with few small focal areas of Doppler signal in the cyst wall.? This is mildly suspicious for ectopic .? No definitive evidence that this represents ectopic pregnancies such as a fetus , yolk sac, or other definite gestational tissue. Large volume complex fluid in the anterior cul-de-sac is potentially related to ectopic or ruptured ectopic. ? No evidence of intrauterine .? Early sonographically occult cannot be strictly excluded. ? Close clinical and imaging follow-up is recommended along with serial hCG trending to differentiate completed , early sonographically occult , and possible ectopic . ? ? Dictated by: Poncho Rosario M.D. on 12/08/2021 at 12:50 ? ? Approved by: Poncho Rosario M.D. on 12/08/2021 at 13:01? MDM Narrative Medical decision making narrative: This is a 26-year-old female who comes to the emergency department with complaint of vaginal bleeding abdominal pain that has been persisting for October. Patient be approximately 6-7 weeks by dates, hCG is 740 with no additional for comparison, patient O-positive not requiring RhoGAM today. Patient has a complex hypoechoic predominantly cystic mass in the right adnexa measuring 3-1/2 x 1.7 x 1.7 cm there is some small focal areas of Doppler in the wall, there is a large complex fluid collection in the anterior cul-de-sac potentially related to ectopic or ruptured ectopic, no evidence of intrauterine it is noted patient has he hCG is 740 discussed with OBGYN on-call Dr. Ponce, read case, she reviewed patient's imaging and workup agrees likely ruptured ectopic plan for OR. Patient has been hemodynamically stable some very mild tachycardic. Reviewed with patient plan as well as her all questions answered. Discharge Plan Departure Patient Disposition: Admitted as Observation Clinical Impression: Ectopic Admit Date/Time: 12/08/21 15:47 Admit Provider: Lizeth Ponce
[2021-12-08 15:19] LABS: COVID19 -Nasal RAPID Negative (Negative)
--- NOTE | 2021-12-08 16:41 | P.HP_ITS ---
History of Present Illness History of Present Illness Date Patient Seen: 12/08/21 Time Patient Seen: 16:41 Chief complaint: Miscarriage sent by DR Minor: Patient is a 26-year-old 1 para 0 is supposed to be at weeks gestation who presented to the emergency department with vaginal bleeding. She has had some lower abdominal cramping. On ultrasound there is no intrauterine . There is a complex mass in the right adnexa and free fluid in the pelvis. Patient History Medical History (Updated 08/26/21 @ 08:21 by ANDREEA Childers) Adnexal mass Allergies (~2018) Ankle pain (~2019) At high risk for complication of severe acute respiratory syndrome coronavirus 2 (SARS-CoV-2) infection Bilateral wrist pain Breast self examination education, encounter for Cervical mass Class 3 obesity COVID-19 vaccine dose declined COVID-19 vaccine series declined Elevated blood pressure reading Elevated LFTs Enlarged liver Fatty liver disease, nonalcoholic Foot pain (~2018) Hearing loss History of COVID-19 Hypertension Irregular menses Mastodynia of left breast Mixed hyperlipidemia Morbid obesity with body mass index of 45.0-49.9 in adult Non-insulin dependent diabetes mellitus Normal breast exam Obesity (BMI 35.0-39.9 without comorbidity) Obesity, Class III, BMI 40-49.9 (morbid obesity) Osteophyte, left wrist Right ovarian cyst Tonsil, abscess Weight gain Well woman exam with routine gynecological exam Surgical History Osteochondroma (~01/2014) Family & Social History Family History Father Asthma Mother Diabetes mellitus Depression Sister Diabetes mellitus Depression Anxiety Sister Diabetes mellitus Mental health problem Grandfather Bladder cancer Diabetes mellitus Grandmother Diabetes mellitus Hypertension Grandfather Hypertension Grandmother Diabetes mellitus Hypertension Safety & Behavioral: Feels Safe in Current Yes Environment Been Physically Hurt or No Threatened By a Person Tobacco & Substance use: Smoking Status Former smoker Substance Use Type does not use Meds Home Medications and Allergies Home Medications Medication Instructions Recorded Confirmed Type blood-glucose meter #1 ea 07/16/19 02/24/21 Rx lancets #200 ea 07/16/19 02/24/21 Rx atorvastatin 10 mg tablet 10 mg PO BEDTIME #30 tabs 02/24/21 02/24/21 Rx lisinopril 2.5 mg tablet 2.5 mg PO DAILY #30 tabs 02/24/21 02/24/21 Rx metformin 1,000 mg tablet 1,000 mg PO BID #60 tabs 02/24/21 02/24/21 Rx Blood Pressure Monitor #1 ea 05/27/21 05/27/21 Rx blood sugar diagnostic (Blood #200 ea 08/06/21 Rx Glucose Test strips) spironolactone 25 mg tablet 25 mg PO DAILY #90 tabs 10/23/21 Rx Allergies Allergy/AdvReac Type Severity Reaction Status Date / Time No Known Drug Allergies Allergy Verified 02/24/21 14:56 Exam Vital Signs (past 8 hours): - 12/08/21 11:17 12/08/21 12:15 12/08/21 12:15 Temperature 98.3 F Pulse Rate 96 H 93 H Respiratory Rate 18 Blood Pressure 160/98 H 131/75 Pulse Oximetry 99 100 Oxygen Delivery Method Room Air 12/08/21 12:30 12/08/21 13:00 12/08/21 13:05 Temperature Pulse Rate 94 H 93 H 92 H Respiratory Rate Blood Pressure Pulse Oximetry 99 97 97 Oxygen Delivery Method 12/08/21 13:05 12/08/21 13:30 12/08/21 13:30 Temperature Pulse Rate 94 H Respiratory Rate Blood Pressure 123/69 128/75 Pulse Oximetry 97 Oxygen Delivery Method 12/08/21 14:00 12/08/21 14:00 12/08/21 14:30 Temperature Pulse Rate 99 H Respiratory Rate 20 Blood Pressure 127/67 128/71 Pulse Oximetry 97 Oxygen Delivery Method 12/08/21 14:30 12/08/21 15:00 12/08/21 15:00 Temperature Pulse Rate 96 H 106 H Respiratory Rate Blood Pressure 128/82 Pulse Oximetry 97 97 Oxygen Delivery Method Oxygen Delivery Method Room Air Narrative Exam Narrative: HEENT: No thyromegaly, no anterior cervical or supraclavicular lymphadenopathy. Lungs:Clear to auscultation bilaterally, no wheezes. Cardiovascular: Regular rate and rhythm, no murmurs, rubs, or gallops. Abdomen: No scars. No hepatosplenomegaly. No masses palpable. External genitalia: Normal Vagina: Normal Cervix: Nulliparous Bimanual exam: 7 Week size uterus. Mobile. Right adnexal fullness and tenderness Extremities: No edema Objective Labs Result Diagrams: 12/08/21 11:44 12/08/21 11:44 Labs: Laboratory Results - last 24 hr 12/08/21 12/08/21 12/08/21 11:44 11:44 11:44 WBC 14.3 H RBC 4.69 Hgb 11.8 L Hct 35.7 L MCV 76.1 L MCH 25.1 L MCHC 32.9 RDW 15.3 H Plt Count 337 Neut % (Auto) 63.1 Lymph % (Auto) 29.0 [place] % (Auto) 4.8 Eos % (Auto) 2.6 Baso % (Auto) 0.5 Neut # (Auto) 9000 H Lymph # (Auto) 4100 [place] # (Auto) 700 Eos # (Auto) 400 Baso # (Auto) 100 Sodium 138 Potassium 3.8 Chloride 101 Carbon Dioxide 25 BUN 9 Creatinine 0.46 L Estimated GFR > 60 BUN/Creatinine Ratio 19.6 Glucose 112 H Calcium 8.9 Total Bilirubin 0.3 AST 34 ALT 69 H Alkaline Phosphatase 52 Total Protein 8.0 Albumin 4.3 Globulin 3.7 Albumin/Globulin Ratio 1.2 Lipase HCG, Quant 740.6 SARS-CoV-2 (PCR) Blood Type O Positive 12/08/21 12/08/21 11:44 14:45 WBC RBC Hgb Hct MCV MCH MCHC RDW Plt Count Neut % (Auto) Lymph % (Auto) [place] % (Auto) Eos % (Auto) Baso % (Auto) Neut # (Auto) Lymph # (Auto) [place] # (Auto) Eos # (Auto) Baso # (Auto) Sodium Potassium Chloride Carbon Dioxide BUN Creatinine Estimated GFR BUN/Creatinine Ratio Glucose Calcium Total Bilirubin AST ALT Alkaline Phosphatase Total Protein Albumin Globulin Albumin/Globulin Ratio Lipase 47 HCG, Quant SARS-CoV-2 (PCR) Negative Blood Type Assessment & Plan Assessment & Plan narrative: Assessment: 26-year-old 1 para 0 with a ruptured right ectopic Plan: Laparoscopic right salpingostomy, possible right salpingectomy Irrigation and aspiration of blood in the pelvis The risks, benefits, and alternatives to the procedure were explained to the patient. The risks including bleeding, infection, injury to the bowel, bladder, or ureters. She understands these risks and agrees to proceed. A full par Q was held and consent form was signed. COVID-19 COVID-19 status: Negative Result date/Date tested (Pos, Neg/Pending): 12/08/21 Time Spent With Patient Time with patient: less than 30 minutes Critical Care time: I spent a total of [] minutes of critical care time on this patient's care today; this time is exclusive of procedural time.
--- NOTE | 2021-12-08 16:44 | PM.PREOP ---
Pre-operative Note COVID-19 COVID-19 status: Negative Result date/Date tested (Pos, Neg/Pending): 12/08/21 Criteria for continued procedure: Delay expected to result in less-positive ultimate med/surg outcome and Non-surgical alternatives not available or appropriate per current SOC Interval Note History & Physical reviewed/Exam performed by Physician: Yes Changes to H&P: No H&P completed within 30 days and has changed as indicated here:: 12/08/21
[2021-12-08] MEDS: LACTATED RINGERS 1,000 ML 42 ML IV (17:05)
[2021-12-08] MEDS: CEFAZOLIN 2 GM/100 ML PREMIX 100 ML IV (17:40)
--- NOTE | 2021-12-08 17:49 | PC.NURSE ---
pt states heavier vaginal bleeding started , wood veneer taper by tuesday.
--- NOTE | 2021-12-08 18:05 | SUR.OPER ---
Lithotomy on padded OR bed, head on pillow, arms secured on padded arm boards at <90 degrees abduction. Legs secured in padded yellow fins stirrups.
[2021-12-08] MEDS: BUPIVACAINE 0.5% W/ EPI (PF) 30 ML VIAL INJ (18:15)
--- NOTE | 2021-12-08 18:47 | PM.GYNOP.1 ---
Operative Date/Time/Diagnoses Date of procedure: 12/08/21 Time of procedure: 18:47 Pre-op diagnosis: Ruptured right ectopic Post-op diagnosis: same Procedure & Clinicians Procedure: Procedures Operation Date: 12/08/21 16:30 Actual Procedure Side Surgeon p Laparoscopic Ectopic Extraction right salpingectomy Lizeth Ponce MD Indications: Mass in the right adnexa on u/s No intrauterine Free fluid in the pelvis Surgeon: Lizeth Ponce Anesthesia Type: General and Local Operative Notes Findings: 7 wk size anteverted uterus Normal left tube and ovary Normal right ovary Adhesions in left pelvis Closure Type: primary Specimen(s): left tube (with ectopic ) Estimated blood loss (mL): 10 Blood products transfused: none Procedure in detail: After informed consent was obtained, the patient was taken to the operating room where she was placed in the dorsal supine position. After adequate general endotracheal anesthesia was achieved, she was placed in the dorsal lithotomy position, and prepped and draped in the usual sterile fashion. A time-out was performed. A bivalve speculum was placed into the vagina and the anterior lip of the cervix was grasped with a single-tooth tenaculum. An attempt was made to dilate the cervix but was unable. The single-tooth tenaculum was removed from the anterior lip of the cervix and a moistened sponge stick was placed into the vagina. The bivalve speculum was removed from the vagina. Attention was then turned to the abdomen where 6 cc of 0.5% Marcaine with epinephrine were injected in the umbilical fold. A 5 mm incision was made. The Veress needle was placed into the peritoneal cavity, and its placement confirmed by aspiration and drop test. The abdominal cavity was insufflated with 4 L of CO2. The Veress needle was removed, and a 5 mm trocar was placed without difficulty. Two other incisions were made after 6 cc of 0.5% Marcaine with epinephrine were injected, 4 cm lateral from the midline on either side. Two 5 mm trocars were placed under direct visualization. The right tube was grasped with an atraumatic grasper. The mesosalpinx on the right side was cauterized and cut all the way down to the cornua of the uterus. The tube was amputated at the cornua. The tube with the ectopic was placed into the anterior cul-de-sac. 6 cc of 0.5% Marcaine with epinephrine were injected above the pubic symphysis. A 12 mm incision was made. A 12 mm trocar was placed under direct visualization. An endobag was placed through the suprapubic trocar and the tube with the ectopic was placed into the bag. The trocar was removed. The bag was pulled up through the skin. The pelvis was examined and there was no bleeding noted. There was about 100 cc of blood in the pelvis and this was aspirated. Hemostasis was achieved. The instruments were removed from the abdomen. The CO2 was allowed to escape. The trocars were removed. The suprapubic incision was closed on the fascia with 0 Vicryl in a running fashion. All of the incisions were closed with 4-0 Monocryl in a subcuticular fashion. Steri-Strips and Allevyn dressings were placed. The moistened sponge stick was removed from the vagina. Sponge, lap, and instrument counts were correct x2. The patient tolerated the procedure well, and was taken to PACU in stable condition. Complications: none Post-operative Condition: stable Disposition: PACU Plan for aftercare: Home after recovery
--- NOTE | 2021-12-08 19:57 | SUR.PHASEI ---
pt educated on use of IS assist with breathing . Pt able to go to 1500 psi consistantly .
--- NOTE | 2021-12-08 20:38 | SUR.PHASEI ---
2036 notified Surgeon that pt is having a difficult time staying away even after Multiple attempts at IS and sitting at side bed. Oxygen sats 88-89 on RA , unable to maintain oxygenation . Pt remains on 2 ln/c
--- NOTE | 2021-12-08 20:54 | SUR.PHASEI ---
Dr Morris called to give him update and he ordered H&H and 3 units of humulog 3 units insulin .
--- NOTE | 2021-12-08 21:01 | SUR.PHASEI ---
Dr Ponce changed Dr Valenzuela orderes H&H in am and to give her metformin tonight insteead of insulin.
[2021-12-08] MEDS: METFORMIN HCL 500 MG TABLET 1000 MG PO (21:51)
[2021-12-08] MEDS: ATORVASTATIN 20 MG TABLET 10 MG PO (21:51)
[2021-12-09 00:10] VITALS: BP 121/68; PULSE 94; RESP 18; TEMP 36.1; O2SAT 98
[2021-12-09 00:42] VITALS: BP 136/80; PULSE 109; RESP 17; TEMP 35.9; O2SAT 98
[2021-12-09] MEDS: OXYCODONE IR 5 MG TABLET PO (02:44)
[2021-12-09 04:00] VITALS: BP 115/76; PULSE 98; RESP 16; TEMP 36.1; O2SAT 98
--- NOTE | 2021-12-09 05:42 | PC.NURSE ---
Pt is AxOx4, independent and cooperative. Post op DAy1, pt c/o abd pain and recieved PRN Oxy 5mg PO once around 0240 with good effect. Pt has 4 incision sites and dressings are C/D/I. Pt is on 2L NC and sats 98%. BG-222 when she arrived to the unit and pt recieved her scheduled Metformin. No other changes. Continue monitor.
[2021-12-09 07:14] LABS: Hematocrit 34.6 % (36-46); Hemoglobin 11.5 g/dL (12.0-16.0)
[2021-12-09] MEDS: DOCUSATE 100 MG CAPSULE PO (08:25)
[2021-12-09] MEDS: SPIRONOLACTONE 25 MG TABLET PO (08:26)
[2021-12-09] MEDS: METFORMIN HCL 500 MG TABLET 1000 MG PO (08:26)
[2021-12-09 08:27] VITALS: BP 124/78; PULSE 98
--- NOTE | 2021-12-09 09:47 | PC.NURSE ---
Pt is A&Ox3, VSS, afebrile on RA this a.m. She denies need for tylenol as she states abdominal pain/cramping is very minimal <2/10. She is able to ambulate in her room, void and tolerates breakfast without nausea/vomitting. Incision sites to abdomen with alevyn c/d/i with minimal spotting to her peripad. She asks appropriate questions about site care and what to what for. Dr. Ponce notified and patient is cleared for discharge home. Spouse supportive at bedside. She verbalizes understanding of her medications, site care, s/sx of infection, or bleeding. She also undertands plan for follow up appointment in 2 weeks. She is escorted to front of hospital ER in w/chair by RN with all of her belongings for discharge home in a private vehicle with her at approximately 0900 a.m.
--- NOTE | 2021-12-09 11:01 | CM.DANOTE ---
DCP: Case received, EMR reviewed and met with patient. Spouse, Davon, was also at bedside. Introduced self and role. Completed DCP assessment based upon information currently available. Patient is a 26 year old female who admitted yesterday afternoon to the care of the hospitalist/SEASONAL RECRUITER team. PCP: confirmed: ANDREEA Childers. Payer: confirmed: Marysol ARMAS. Patient came to the hospital secondary to having complaints of vaginal bleeding, abdominal pain persisting sncoctober. Patient was noted to be approximately 6-7 weeks . Notes indicate that patient had ectopic or ruptured ectopic, no evidence of intrauterine . Patient went to OR to have laparoscopic right salpingostomy, possible right salpingectomy. Met with patient in her room, and spouse was also at bedside. Spouse works down in the ER. Confirmed that patient and spouse both reside in [place], and patient is employed at [employer]. She has discharge orders, and patient and spouse are getting ready to leave. Confirmed that her primary care provider is Laura Ferrara. No needs at discharge. P: Patient is discharging home today with no needs. Rekha Palmer RN/Jewelry Drilling Machine Operator Discharge Planning/Care Management CM Discharge Assessment Start: 12/09/21 11:00 Freq: Status: Active Protocol: Document 12/09/21 11:00 (Rec: 12/09/21 11:01 [id number]) Discharge Planning Assessment Assigned Electrical Cad Technician Rekha Palmer RN/Jewelry Drilling Machine Operator Advance Directives? No History Provided By Patient,Medical Record Prior Living Arrangements House Household Members spouse Type of transporation used prior to Drives own vehicle admit Independent with ADL's Yes Is patient alert and oriented? Yes Caregiver for Another No Barriers to Discharge No Transportation Arrangement Spouse Referrals Initiated None needed Whiteboard Updated in Patient Room with No name and ext. # of Electrical Cad Technician Comment Patient was getting ready to leave. Review Status In Process Next Review Type Continued Stay Review
== END 2021-12-09 09:00 | disposition home or self-care (01) ==
LOC: ED 14:28 → AC 15:48
PROVIDERS: Admitting Provider Obstetrics & Gynecology; Emergency Provider Emergency Medicine; PCP Nurse Practitioner; Referring Provider Emergency Medicine; Visit Provider Obstetrics & Gynecology
PROC: (CPT 59151; principal; 2021-12-08 16:30)
DX: O00.101 Right tubal pregnancy without intrauterine pregnancy (principal); E11.9 Type 2 diabetes mellitus without complications; Z79.84 Long term (current) use of oral hypoglycemic drugs; Z20.822 Contact with and (suspected) exposure to COVID-19
CPT/HCPCS: 59151; 36415; 76801; 76817; 80053; 81003; 81025; 82962; 83690; 84702; 85014; 85018; 85025; 86900; 86901; 87635; 94762; 99284; C9803; G0378; J0690; J1100; J1170; J1885; J2250; J2405; J2704; J3010

== ENCOUNTER → 2022-03-18 12:24 | Outpatient (CLI) | payer OTHER, SELFPAY ==
[2021-12-14 09:56] VITALS: BMI 44.2
--- NOTE | 2022-03-18 12:30 | DI.RAD.S_ITS ---
PROCEDURE: HL HYSTEROSAPINGOGRAPHY INDICATIONS: Infertility COMPARISON: None. FINDINGS: Patient had a documented negative test prior to the study. Following speculum insertion, a balloon-tip catheter was inserted into the cervical canal, and secured by inflating the balloon. Contrast was then injected into the endometrial canal. Uterus: The uterine cavity appears normal in size and morphology, without synechiae or masses. Fallopian tubes: Status post right salpingectomy. The left fallopian tube fills with contrast, and appears normal in caliber and morphology. There is ready dispersion of contrast into the peritoneal cavity. IMPRESSION: Patent left fallopian tube. Approved by: Del Ann M.D. on 03/18/2022 at 14:16
--- NOTE | 2022-03-20 15:28 | P.PCN_ITS ---
Procedures Date/Time Date of procedure: 03/18/22 Time of procedure: 13:10 General Procedure description: Hysterosalpingogram Informed consent was obtained. The patient was placed on the table with an overturned bedpan under her pelvis. An open-sided speculum was placed into the vagina. The cervix was cleaned x3 with Betadine. A single-tooth tenaculum was placed on the anterior lip of the cervix. The hysterosalpingogram catheter pa ssed easily into the endometrial cavity. The balloon was filled with 3 cc of air. The open sided speculum was removed from the vagina. 20 cc of Isovue-300 were injected under direct fluoroscopic examination. The uterus cavity had a normal configuration. The left tube filled and spilled immediately. The right tube had previously been removed due to an ectopic . The dye was removed from the uterus. The HSG catheter was removed from the uterus. The single-tooth tenaculum was removed from the anterior lip of the cervix. Sponge and instrument counts were correct x2. The patient tolerated the procedure well.
== END ==
PROVIDERS: PCP Nurse Practitioner; Referring Provider Obstetrics & Gynecology; Visit Provider Obstetrics & Gynecology
DX: N97.9 Female infertility, unspecified (principal)
CPT/HCPCS: 58340; 74740

== ENCOUNTER → 2022-04-23 06:35 | Outpatient (CLI) | payer BC, OTHER, MEDICAID, SELFPAY ==
[2021-12-14 09:56] VITALS: BMI 44.2
[2022-04-23 07:27] LABS: Add Manual Diff / Slide Review NO; Basophils Absolute Auto 100 /uL (0-100); Basophils Percent Auto 0.6 % (0-2); Eosinophils Absolute Auto 500 /uL (0-450); Eosinophils Percent Auto 4.8 % (2-4); Hematocrit 40.5 % (36-46); Lymphocytes Absolute Auto 3300 /uL (1100-4500); Lymphocytes Percent Auto 28.9 % (25-40); Mean Corpuscular HGB Conc 32.1 % (30-36); Mean Corpuscular Hemoglobin 24.7 PG (26-34); Mean Corpuscular Volume 76.9 fL (80-100); Monocytes Absolute Auto 700 /uL (0-900); Monocytes Percent Auto 6.4 % (3-14); Neutrophils Absolute Auto 6700 /uL (1500-7000); Neutrophils Percent Auto 59.3 % (50-75); Platelet Count 359 X10^3/uL (150-400); Red Blood Cell Count 5.27 X10^6/uL (4.0-5.2); Red Cell Distribution Width 16.4 % (11.6-14.8); White Blood Cell Count 11.4 X10^3/uL (4.5-11.0)
[2022-04-23 07:39] LABS: Hemoglobin A1C% w Est Avg Glu 6.4 % (4.0-6.0)
[2022-04-23 07:49] LABS: Alanine Aminotransferase 78 IU/L (<35); Albumin 4.6 g/dL (3.5-5.0); Albumin Globulin Ratio 1.4 (1.0-2.8); Alkaline Phosphatase 48 U/L (38-126); Aspartate Aminotransferase 40 IU/L (14-36); Bilirubin Total 0.5 mg/dL (0.2-1.3); Blood Urea Nitrogen 12 mg/dL (7-17); Calcium 9.3 mg/dL (8.4-10.2); Carbon Dioxide 26 mmol/L (22-32); Chloride 102 mmol/L (98-107); Cholesterol 143 mg/dL (140-199); Estimated Glomerular Filt Rate > 60 mL/min (>60); Globulin 3.4 g/dL (1.7-4.1); Glucose 98 mg/dL (70-100); HDL Cholesterol 51 mg/dL (40-60); HEMOLYSIS < 15 (0-50); LDL Cholesterol Calculated 77 mg/dL (<100); Potassium 4.3 mmol/L (3.4-5.1); Sodium 137 mmol/L (137-145); Triglycerides 74 mg/dL (35-150)
[2022-04-23 08:06] LABS: Free T3, Triiodothyronine Free 4.39 pg/mL (2.77-5.27); Free T4, Direct Thyroxine 1.11 ng/dL (0.78-2.19)
[2022-04-23 08:31] LABS: HIV 1 & 2 Ab/Ag 4th Gen Combo NEGATIVE (NEGATIVE)
[2022-04-23 08:37] LABS: Creatinine Urine Random 282.6 mg/dL
[2022-04-23 08:41] LABS: Microalbumi Creatinin Ratio Ur 4.6 ug/mg CR (<30); Microalbumin Urine Random 1.3 mg/dL (0-1.6)
[2022-04-23 09:08] LABS: Thyroid Stimulating Hormone 1.94 uIU/mL (0.47-4.68)
[2022-04-23 09:36] LABS: Urine N gonorrhoeae NOT DETECTED
[2022-04-23 09:37] LABS: Urine Chlamydia NOT DETECTED
== END ==
PROVIDERS: PCP Nurse Practitioner; Referring Provider Nurse Practitioner; Visit Provider Nurse Practitioner
DX: D64.9 Anemia, unspecified (principal); E78.2 Mixed hyperlipidemia; I10 Essential (primary) hypertension; K76.0 Fatty (change of) liver, not elsewhere classified; R79.89 Other specified abnormal findings of blood chemistry; Z79.899 Other long term (current) drug therapy; Z11.4 Encounter for screening for human immunodeficiency virus [HIV]; Z11.8 Encounter for screening for other infectious and parasitic diseases
CPT/HCPCS: 36415; 80053; 80061; 82043; 82570; 83036; 84439; 84443; 84481; 85025; 87389; 87491; 87591

== ENCOUNTER → 2023-04-01 13:36 | Outpatient (CLI) | payer OTHER, SELFPAY ==
[2021-12-14 09:56] VITALS: BMI 44.2
[2023-04-01 14:03] LABS: Add Manual Diff / Slide Review NO; Basophils Absolute Auto 100 /uL (0-100); Basophils Percent Auto 0.7 % (0-2); Eosinophils Absolute Auto 500 /uL (0-450); Eosinophils Percent Auto 3.9 % (2-4); Hematocrit 39.1 % (36-46); Hemoglobin 12.8 g/dL (12.0-16.0); Lymphocytes Absolute Auto 4300 /uL (1100-4500); Lymphocytes Percent Auto 32.8 % (25-40); Mean Corpuscular HGB Conc 32.8 % (30-36); Mean Corpuscular Hemoglobin 24.6 PG (26-34); Mean Corpuscular Volume 74.8 fL (80-100); Monocytes Absolute Auto 700 /uL (0-900); Monocytes Percent Auto 5.8 % (3-14); Neutrophils Absolute Auto 7400 /uL (1500-7000); Neutrophils Percent Auto 56.8 % (50-75); Platelet Count 339 X10^3/uL (150-400); Red Blood Cell Count 5.23 X10^6/uL (4.0-5.2)
[2023-04-01 14:11] LABS: Hemoglobin A1C% w Est Avg Glu 9.2 % (4.0-6.0)
[2023-04-01 14:23] LABS: Alanine Aminotransferase 213 IU/L (<35); Albumin 4.4 g/dL (3.5-5.0); Albumin Globulin Ratio 1.2 (1.0-2.8); Alkaline Phosphatase 72 U/L (38-126); Aspartate Aminotransferase 134 IU/L (14-36); BUN Creatinine Ratio 25.6 (6-22); Bilirubin Total 0.5 mg/dL (0.2-1.3); Blood Urea Nitrogen 10 mg/dL (7-17); Calcium 9.6 mg/dL (8.4-10.2); Carbon Dioxide 25 mmol/L (22-32); Chloride 99 mmol/L (98-107); Estimated Glomerular Filt Rate > 60 mL/min (>60); Globulin 3.7 g/dL (1.7-4.1); Glucose 141 mg/dL (70-100); Sodium 136 mmol/L (137-145); Total Protein 8.1 g/dL (6.3-8.2)
[2023-04-01 14:24] LABS: HEMOLYSIS 25 (0-50)
== END ==
PROVIDERS: PCP Nurse Practitioner; Referring Provider Nurse Practitioner; Visit Provider Nurse Practitioner
DX: D72.829 Elevated white blood cell count, unspecified (principal); R71.8 Other abnormality of red blood cells; E66.9 Obesity, unspecified; R79.89 Other specified abnormal findings of blood chemistry; K76.0 Fatty (change of) liver, not elsewhere classified
CPT/HCPCS: 36415; 80053; 83036; 85025

== ENCOUNTER → 2023-09-24 07:55 | Outpatient (CLI) | payer OTHER, SELFPAY ==
[2021-12-14 09:56] VITALS: BMI 44.2
[2023-09-24 08:39] LABS: Hemoglobin 13.1 g/dL (12.0-16.0); Mean Corpuscular HGB Conc 32.8 % (30-36); Mean Corpuscular Hemoglobin 24.7 PG (26-34); Mean Corpuscular Volume 75.3 fL (80-100); Platelet Count 337 X10^3/uL (150-400); Red Blood Cell Count 5.32 X10^6/uL (4.0-5.2); Red Cell Distribution Width 15.2 % (11.6-14.8); White Blood Cell Count 12.7 X10^3/uL (4.5-11.0)
[2023-09-24 09:19] LABS: Alanine Aminotransferase 73 IU/L (<35); Albumin 4.4 g/dL (3.5-5.0); Albumin Globulin Ratio 1.4 (1.0-2.8); Alkaline Phosphatase 54 U/L (38-126); Aspartate Aminotransferase 40 IU/L (14-36); BUN Creatinine Ratio 21.1 (6-22); Bilirubin Total 0.5 mg/dL (0.2-1.3); Blood Urea Nitrogen 12 mg/dL (7-17); Calcium 9.8 mg/dL (8.4-10.2); Carbon Dioxide 24 mmol/L (22-32); Chloride 104 mmol/L (98-107); Cholesterol 206 mg/dL (140-199); Creatinine Urine Random 198.69 mg/dL; Estimated Glomerular Filt Rate > 60 mL/min (>60); Globulin 3.2 g/dL (1.7-4.1); Glucose 129 mg/dL (70-100); HDL Cholesterol 62 mg/dL (40-60); HEMOLYSIS < 15 (0-50); LDL Cholesterol Calculated 121 mg/dL (<100); Potassium 4.6 mmol/L (3.4-5.1); Sodium 137 mmol/L (137-145); Total Protein 7.6 g/dL (6.3-8.2); Triglycerides 116 mg/dL (35-150)
[2023-09-24 09:24] LABS: Microalbumin Urine Random 2.1 mg/dL (0-1.6)
[2023-09-24 09:35] LABS: Free T3, Triiodothyronine Free 3.98 pg/mL (2.77-5.27); Free T4, Direct Thyroxine 1.04 ng/dL (0.78-2.19)
[2023-09-24 09:49] LABS: Thyroid Stimulating Hormone 2.76 uIU/mL (0.47-4.68)
== END ==
PROVIDERS: PCP Nurse Practitioner; Referring Provider Nurse Practitioner; Visit Provider Nurse Practitioner
DX: I10 Essential (primary) hypertension (principal)
CPT/HCPCS: 36415; 80053; 80061; 82043; 82570; 83036; 84439; 84443; 84481; 85027